=== PATIENT | female | born 1980 | race Caucasian/White ===

== ENCOUNTER 2019-08-01 15:45 | Outpatient (CLI) | payer BC, SELFPAY ==
--- NOTE | ~2019-08-01 | XR_ITS ---
EXAMINATION: XR chest 2V EXAM DATE: 08/01/2019 16:09 INDICATION: Cough, intermittent fever, symptoms 3 weeks. TECHNIQUE: Frontal and lateral projections of the chest obtained and reviewed. Comparison is made to prior examination from 07/04/2017. FINDINGS: The lungs are clear. There are no pleural effusions. The cardiomediastinal silhouette is within normal limits. There is no pneumothorax suspected. The bones and soft tissues are unremarkab le. IMPRESSION: Unremarkable chest x-ray exam. Reviewed, dictated and finalized at location A.
== END 2019-08-01 15:46 | disposition home or self-care (01) ==
PROVIDERS: PCP Family Medicine; Visit Provider Family Medicine
DX: R05 Cough (principal)
CPT/HCPCS: 71046

== ENCOUNTER 2019-12-13 07:28 | Emergency (ER) | payer BC, SELFPAY ==
--- NOTE | ~2019-12-13 | XR_ITS ---
EXAMINATION: XR chest 2V DATE: 12/13/2019 08:14 INDICATION: Mid to left-sided chest pain. TECHNIQUE: Frontal and lateral views of the chest were obtained. COMPARISON: Chest 2 views 08/01/2019 FINDINGS: The chest demonstrates clear lungs without pneumonia, pleural effusion, or pneumothorax. Th e heart size is normal. IMPRESSION: 1. No acute cardiopulmonary disease. Reviewed, dictated and finalized at location A.
--- NOTE | 2019-12-13 07:30 | PC.NURSE ---
VERBAL ORDER FROM MARLENY MORALEZ AFTER HIS DISCUSSION WITH PT TO ALSO ADMINISTER 5MG HALDOL AND 50MG BENADRYL IM WITH THE [facility].
[2019-12-13 07:33] VITALS: BP 149/100; PULSE 99; RESP 18; TEMP 36.7; O2SAT 100
[2019-12-13 07:50] VITALS: PULSE 86
--- NOTE | 2019-12-13 08:09 | ED.CHESTPAIN ---
HPI - Chest Pain General Chief Complaint: Chest Pain Stated Complaint: CHEST PAIN Time Seen by Provider: 12/13/19 07:32 History of Present Illness HPI narrative: Patient is a 39-year-old female who presents to the ER with chest pain. Left-sided radiating to left shoulder. Sharp and intermittent. Began at 3 AM in the morning and persisted and she got up later to get ready for work. Mild discomfort when taking a deep breath. No exertional component. Denies fever/chills/sweats/cough. She does have a Mirena IUD. No recent surgeries or long distance travel. She is without lower extremity swelling or bloody sputum. Has not taking any medication to help with the discomfort. She does report she had a slip and fall 2 days ago where she fell backwards and landed hard. She did not have any pain yesterday. Related Data Home Medications Medication Instructions Recorded Confirmed topiramate 50 mg tablet 50 mg PO BID 09/13/19 Allergies Allergy/AdvReac Type Severity Reaction Status Date / Time erythromycin base Allergy Unknown Vomiting Verified 12/13/19 08:57 Review of Systems Review of Systems: All systems reviewed & are unremarkable except as noted in HPI and below Constitutional: Constitutional: Denies chills and Denies fever(s) Cardiovascular: Cardiovascular: Reports chest pain, Denies rapid heart rate and Reports radiating jaw, neck or arm pain Respiratory: Respiratory: Denies cough and Denies dyspnea Musculoskeletal: Musculoskeletal: Denies myalgias, Denies joint swelling and Denies muscle cramps PMFSH Past Medical History Medical History (Updated 12/13/19 @ 12:33 by Franck Manuel MD) Migraine Surgical History Surgical History (Updated 09/13/19 @ 07:58 by Joy Duong CMA) History of tonsillectomy Social History Social History (Updated 09/13/19 @ 07:59 by Joy Duong CMA) Smoking status: Former smoker Tobacco type: cigarettes Alcohol intake: current Substance use: never Exam Narrative: Exam Narrative: GENERAL: Well-appearing, well-nourished, and in no acute distress. HEAD: Normocephalic, atraumatic. CHEST: Clear to auscultation. No respiratory distress. No significant pain with palpation. HEART: Regular rate and rhythm. ormal peripheral pulses. ABDOMEN: Soft, nontender, nondistended. EXTREMITIES: Normal range of motion. No edema. SKIN: Warm, dry, no rash. NEURO: Alert and oriented x3. PSYCH: Normal mood and affect. Course Course Emergency Course: Troponin negative x2. Pain felt to be on results of patient's fall couple days prior. Recommend follow-up with PCP. Patient verbalized understanding. Vital Signs Vital signs: Vital Signs Temperature 98.0 F 12/13/19 07:33 Pulse Rate 99 12/13/19 07:33 Respiratory Rate 18 12/13/19 07:33 Blood Pressure 149/100 H 12/13/19 07:33 Pulse Oximetry 100 12/13/19 07:33 Temperature 97.8 F 12/13/19 11:23 Pulse Rate 75 12/13/19 11:23 Respiratory Rate 16 12/13/19 11:23 Blood Pressure 124/92 H 12/13/19 11:23 Pulse Oximetry 100 12/13/19 11:23 MDM - Chest Pain Lab Data Result diagrams: 12/13/19 08:07 12/13/19 08:07 Labs: Lab Results 12/13/19 12/13/19 12/13/19 Range/Units 08:07 08:07 08:07 WBC 6.7 (4.5-10.0) K/mm3 RBC 4.73 (4.2-5.4) M/mm3 Hgb 14.5 (12.0-15.0) g/dL Hct 42.8 (37.0-47.0) % MCV 90.5 (80-100) fl MCH 30.7 (26-34) pg MCHC 33.9 (32-36) g/dl RDW 12.5 (11.5-14.5) % Plt Count 316 (150-375) k/mm3 MPV 10.2 (7.4-10.4) fl Immature Gran % (Auto) 0.3 (0-0.5) % Neut % (Auto) 63.8 (45.5-73.1) % Lymph % (Auto) 26.8 (18.3-44.2) % Ector % (Auto) 7.0 (2.6-8.5) % Eos % (Auto) 1.2 (0-4.4) % Baso % (Auto) 0.9 (0.2-1.2) % Lymph # (Auto) 1.79 (0.9-3.2) K/mm3 Ector # (Auto) 0.5 (0.1-0.6) K/mm3 Eos # (Auto) 0.1 (0-0.3) K/mm3 Baso # (Auto) 0.1 (0.0-0.1) K/mm3 Abs Imm
[2019-12-13 08:14] LABS: Basophils Absolute Auto 0.1 K/mm3 (0.0-0.1); Basophils Percent Auto 0.9 % (0.2-1.2); Eosinophils Absolute Auto 0.1 K/mm3 (0-0.3); Eosinophils Percent Auto 1.2 % (0-4.4); Hematocrit 42.8 % (37.0-47.0); Hemoglobin 14.5 g/dL (12.0-15.0); Immature Granulocyte Absolute 0.02 K/mm3 (0.00-0.031); Immature Granulocyte Percent A 0.3 % (0-0.5); Lymphocytes Absolute Auto 1.79 K/mm3 (0.9-3.2); Lymphocytes Percent Auto 26.8 % (18.3-44.2); Mean Corpuscular HGB Conc 33.9 g/dl (32-36); Mean Corpuscular Hemoglobin 30.7 pg (26-34); Mean Corpuscular Volume 90.5 fl (80-100); Mean Platelet Volume 10.2 fl (7.4-10.4); Monocytes Absolute Auto 0.5 K/mm3 (0.1-0.6); Neutrophils Absolute Auto 4.3 K/mm3 (1.3-6.7); Neutrophils Percent Auto 63.8 % (45.5-73.1); Platelet Count Result 316 k/mm3 (150-375); Red Blood Count 4.73 M/mm3 (4.2-5.4); Red Cell Distribution Width 12.5 % (11.5-14.5); White Blood Count 6.7 K/mm3 (4.5-10.0)
[2019-12-13 08:24] LABS: INR 0.9; Prothrombin Time 12.1 Seconds (11.1-14.7)
[2019-12-13 08:26] LABS: Alanine Aminotransferase 15 U/L (4-35); Albumin Level 4.3 g/dL (3.5-5.1); Alkaline Phosphatase 69 U/L (38-126); Anion Gap 7 mmol/L (8-16); Aspartate Amino Transferase 19 U/L (14-36); Bilirubin,Total 0.4 mg/dL (0.2-1.3); Blood Urea Nitrogen 13 mg/dL (7-17); Calcium 8.9 mg/dL (8.4-10.2); Carbon Dioxide 20 mmol/L (22-30); Chloride 111 mmol/L (98-107); Estimated CRCL calculation 83 ml/min; Estimated Glomerular Filt Rate > 60; Glucose 99 mg/dL (65-105); Potassium 3.7 mmol/L (3.4-5.0); Sodium 138 mmol/L (137-145)
[2019-12-13 08:27] LABS: D Dimer 0.33 ug/mL (<0.48)
[2019-12-13 08:37] LABS: Troponin I < 0.012 ng/mL (0.000-0.034)
[2019-12-13] MEDS: KETOROLAC 30 MG/ML VIAL (*BKC) IV PUSH (08:49)
--- NOTE | 2019-12-13 09:02 | PC.NURSE ---
all results back. pt resting quietly on stretcher. no distress noted.
[2019-12-13 11:23] VITALS: BP 124/92; PULSE 75; RESP 16; TEMP 36.6; O2SAT 100
[2019-12-13 11:55] LABS: Troponin I < 0.012 ng/mL (0.000-0.034)
[2019-12-13 12:48] VITALS: BP 132/83; PULSE 80; RESP 22; O2SAT 99
== END 2019-12-13 12:50 | disposition home or self-care (01) ==
PROVIDERS: Emergency Provider Emergency Medicine; PCP Family Medicine
DX: R07.89 Other chest pain (principal); Z87.891 Personal history of nicotine dependence
CPT/HCPCS: 36415; 71046; 80053; 84484; 85025; 85380; 85610; 85730; 96374; 99284; J1885

== ENCOUNTER → 2020-03-21 15:23 | Outpatient (CLI) | payer BC, SELFPAY ==
--- NOTE | ~2020-03-21 | MM_ITS ---
EXAMINATION: MM screening [facility] BI w aisha HISTORY: Screening mammogram TECHNIQUE: Craniocaudal and mediolateral oblique 3-D tomosynthesis images were obtained and synthetic 2-D images were generated. CAD analysis was submitted and interpreted. COMPARISON: 11/02/2018 BREAST PARENCHYMAL COMPOSITION: There are scattered areas of fibroglandular density. FINDINGS: There is no evidence of suspicious mass, calcification, or architectural distortion to sugg est malignancy in either breast. There has been no suspicious interval change. IMPRESSION: 1. No mammographic evidence of malignancy. 2. Recommend routine screening mammography in one year. BI-RADS Category 1: Negative Reviewed, dictated and finalized at location A. APEUTIC RECREATION LEADER
== END ==
PROVIDERS: Visit Provider Obstetrics & Gynecology
DX: Z12.31 Encounter for screening mammogram for malignant neoplasm of breast (principal)
CPT/HCPCS: 77063; 77067

== ENCOUNTER → 2020-04-26 09:28 | Outpatient (CLI) | payer BC, SELFPAY ==
--- NOTE | ~2020-04-26 | XR_ITS ---
XR chest 2V DATE: 04/26/2020 10:01 INDICATION: Cough TECHNIQUE: 2 views COMPARISON: 12/13/2019 2 view chest FINDINGS: Normal heart size. No hilar or mediastinal enlargement. No pulmonary infiltrate or consolid ation, pleural effusion or pulmonary vascular congestion or pneumothorax. Included skeletal structure s are unremarkable. IMPRESSION: Negative Reviewed, dictated and finalized at location A. UNITY AIDE IMPRESSION: Negative
== END ==
PROVIDERS: PCP Nurse Practitioner Family; Visit Provider Nurse Practitioner Family
DX: R05 Cough (principal)
CPT/HCPCS: 71046

== ENCOUNTER → 2021-05-27 07:12 | Outpatient (CLI) | payer BC, SELFPAY ==
--- NOTE | ~2021-05-27 | MM_ITS ---
EXAMINATION: MM screening [facility] BI w aisha HISTORY: Screening TECHNIQUE: Craniocaudal and mediolateral oblique 3-D tomosynthesis images were obtained and synthetic 2-D images were generated. CAD analysis was submitted and interpreted. COMPARISON: Comparison to multiple prior studies sequentially, with oldest reviewed study dated 11/02. BREAST PARENCHYMAL COMPOSITION: There are scattered areas of fibroglandular density. FINDINGS: There is no evidence of suspicious mass, calcification, or architectural distortion to sugg est malignancy in either breast. There has been no suspicious interval change. IMPRESSION: 1. No mammographic evidence of malignancy. 2. Recommend routine screening mammography in one year. BI-RADS Category 1: Negative Reviewed, dictated and finalized at location A. E CALLER
== END ==
PROVIDERS: PCP Nurse Practitioner Family; Visit Provider Obstetrics & Gynecology
DX: Z12.31 Encounter for screening mammogram for malignant neoplasm of breast (principal)
CPT/HCPCS: 77063; 77067

== ENCOUNTER → 2022-08-12 16:51 | Outpatient (CLI) | payer BC, SELFPAY ==
--- NOTE | ~2022-08-12 | MM_ITS ---
EXAMINATION: MM screening [facility] BI w aisha HISTORY: Screening mammogram TECHNIQUE: Craniocaudal and mediolateral oblique 3-D tomosynthesis images were obtained and synthetic 2-D images were generated. CAD analysis was submitted and interpreted. COMPARISON: 05/27/2021, 03/21/2020, 11/02/2018 BREAST PARENCHYMAL COMPOSITION: There are scattered areas of fibroglandular density. FINDINGS: No suspicious mass, calcification, or architectural distortion are identified in either lonnie ast to suggest malignancy. There has been no suspicious interval change. IMPRESSION: 1. No mammographic evidence of malignancy. 2. Recommend routine screening mammography in one year. BI-RADS Category 1: Negative Reviewed, dictated and finalized at location A.
== END ==
PROVIDERS: PCP Nurse Practitioner Family; Visit Provider Obstetrics & Gynecology
DX: Z12.31 Encounter for screening mammogram for malignant neoplasm of breast (principal)
CPT/HCPCS: 77063; 77067

== ENCOUNTER 2023-01-09 18:09 | Emergency (ER) | payer BC, SELFPAY ==
--- NOTE | 2023-01-09 18:11 | ED.FEMALEGU ---
HPI - Female Genitourinary General Chief complaint: Urogenital-Female Stated complaint: Urinary Problems Time Seen by Provider: 01/09/23 18:11 Source: patient Mode of arrival: ambulatory Limitations: no limitations History of Present Illness HPI Narrative: Breanna is a 42-year-old female patient presenting to the clinic today with complaints of urinary issues. She reports over the last 2-3 days she has had urinary frequency, urgency and feels as though she has had some urinary retention. Does have some pressure in the lower abdomen. Pressure in the abdomen has worsened today. Denies any known blood in her urine. Denies any fever, chills, or back pain. No nausea or vomiting Related Data Home Medications Medication Instructions Recorded Confirmed topiramate 50 mg tablet (Topamax) 50 mg PO BID 09/13/19 01/09/23 levonorgestrel 21 mcg/24 hours (8 1 device intrauterine ONCE 08/10/20 01/09/23 yrs) 52 mg intrauterine device (Mirena) Allergies Allergy/AdvReac Type Severity Reaction Status Date / Time erythromycin base AdvReac Intermediate Nausea and Verified 01/09/23 18:14 Vomiting Review of Systems Review of Systems: Pertinent positives per HPI. Patient denies any fever, chills, rash, headache, visual changes, dizziness, cough, shortness of breath, chest pain, palpitations, nausea, vomiting, diarrhea, constipation, abdominal pain, or any urinary issues. [facility] Past Medical History Medical History Elective x1 04/1998 Migraine Vaginal delivery x1 08/09/02, full, vag, male, 7#13 Surgical History Surgical History History of tonsillectomy 2010 [place] teeth extracted 08/1996 Family History Family History Father Diabetes mellitus Mother Thyroid disorder Grandparent Diabetes mellitus Other Colon cancer Hypertension Social History Social History Smoking status: Former smoker Tobacco type: cigarettes Alcohol intake: current Alcohol use details: socially Substance use: never Living arrangements: with family Occupation/Education: occupation Additional occupation/education comments: [employer] Gender identity (if verbalized by the patient): Male Sexual Orientation (if Verbalized by the Patient): Straight or Heterosexual Agree to blood products: Yes Comments At the time of my signature, I reviewed and agree with the nursing past medical, surgical, social, and family history. There is no relevant family history pertinent to the patient complaint. Exam Narrative: General: Well-developed, obese, in no apparent distress. Head: Normocephalic, atraumatic. Cardio: Regular rate and rhythm, s1 and s2 normal, no murmur appreciated. Resp: Clear to auscultation bilaterally, no rhonchi, rales, wheezing or rubs. Abdomen: Soft, pliable, bowel sounds present in all quadrants, non-tender to palpation, no organomegly, no CVAT tenderness. Course Course Emergency Course: Portions of this record may have been created with voice recognition software. Level of Care: Express Care Visit Vital Signs Vital signs: Vital signs reviewed MDM - Female Genitourinary MDM Narrative Medical decision making narrative: At the time of visit patient is resting comfortably on the exam table. UA shows 1+ leukocytes and trace of protein. We will send for culture. I suspect patient has acute cystitis. Supportive measures were discussed with the patient she voiced understanding discharge instructions and agrees to treatment plan. Will place the patient on Bactrim. Differential Diagnosis Differential diagnosis: Likely urinary tract infection and cystitis Discharge Plan Discharge Clinical Impression: UTI (urinary tract infection) Qualifiers:
[2023-01-09 18:19] VITALS: BP 137/96; PULSE 85; RESP 16; TEMP 36.5; O2SAT 99
== END 2023-01-09 18:30 | disposition home or self-care (01) ==
PROVIDERS: Emergency Provider Nurse Practitioner Family; PCP Nurse Practitioner Family
DX: N30.00 Acute cystitis without hematuria (principal); Z87.891 Personal history of nicotine dependence
CPT/HCPCS: 81003; 87086; 87088; 99213; G0463

== ENCOUNTER 2023-01-25 08:47 | Emergency (ER) | payer BC, SELFPAY ==
--- NOTE | ~2023-01-25 | XR_ITS ---
EXAMINATION: XR ankle RT min 3V INDICATION: Right ankle pain TECHNIQUE: Four views of the right ankle are obtained. COMPARISON: None available FINDINGS: No fracture, dislocation, or subluxation. The bones, soft tissues, and joint spaces are unr emarkable. A plantar calcaneal enthesophyte is noted. IMPRESSION: 1. No acute osseous abnormality. Reviewed, dictated and finalized at location F. INAL OPERATOR
[2023-01-25 08:58] VITALS: BP 133/95; PULSE 85; RESP 18; TEMP 36.6; O2SAT 100
--- NOTE | 2023-01-25 09:01 | ED.LOWEXIN ---
HPI - Extremity Injury (Lower) General Chief Complaint: Extremity Injury, Lower Stated Complaint: Rt Ankle Pain Time Seen by Provider: 01/25/23 09:01 Source: patient Mode of arrival: ambulatory Limitations: no limitations History of Present Illness HPI Narrative: Patient is a 42-year-old female that presents with right ankle pain after rolling it yesterday. Patient reports it hurts if moving in certain direction. Patient still able to walk. Patient has been taking Tylenol ibuprofen. Denies any significant swelling or bruising. Related Data Home Medications Medication Instructions Recorded Confirmed topiramate 50 mg tablet (Topamax) 50 mg PO BID 09/13/19 01/25/23 levonorgestrel 21 mcg/24 hours (8 1 device intrauterine ONCE 08/10/20 01/25/23 yrs) 52 mg intrauterine device (Mirena) Allergies Allergy/AdvReac Type Severity Reaction Status Date / Time erythromycin base AdvReac Intermediate Nausea and Verified 01/25/23 09:06 Vomiting Review of Systems Review of Systems: All systems reviewed & are unremarkable except as noted in HPI and below Constitutional: Constitutional: Denies body ache(s), Denies chills, Denies fatigue, Denies fever(s), Denies headache(s), Denies malaise and Denies weakness Eyes: Eyes: Denies blurry vision, Denies irritation and Denies loss of vision ENT: Denies otalgia, Denies headache(s), Denies nasal discharge, Denies sinus pain and Denies sore throat Cardiovascular: Cardiovascular: Denies chest pain, Denies irregular heart rhythm and Denies dyspnea Respiratory: Respiratory: Denies dyspnea Gastrointestinal: Gastrointestinal: Denies abdominal pain, Denies melena, Denies hematochezia, Denies diarrhea, Denies nausea and Denies vomiting Musculoskeletal: Musculoskeletal: Denies back pain, Denies myalgias and Reports arthralgias Integumentary/Breasts: Skin/Breast: Denies pruritus and Denies rash Neurologic: Denies headache(s), Denies loss of vision and Denies weakness Psychiatric: Psychiatric: Reports no additional psychiatric complaints Endocrine: Endocrine: Denies fatigue PMFSH Past Medical History Medical History Elective x1 04/1998 Migraine Vaginal delivery x1 08/09/02, full, vag, male, 7#13 Surgical History Surgical History History of tonsillectomy 2010 [place] teeth extracted 08/1996 Family History Family History Father Diabetes mellitus Mother Thyroid disorder Grandparent Diabetes mellitus Other Colon cancer Hypertension Social History Social History Smoking status: Former smoker Tobacco type: cigarettes Alcohol intake: current Alcohol use details: socially Substance use: never Living arrangements: with family Occupation/Education: occupation Additional occupation/education comments: [employer] Gender identity (if verbalized by the patient): Male Sexual Orientation (if Verbalized by the Patient): Straight or Heterosexual Agree to blood products: Yes Comments At time of signature, agree with nursing past medical, surgical, social and family history. There is no relevant family history pertinent to the presenting complaint. Exam Const: General: cooperative, healthy appearing, comfortable, no acute distress and well nourished Nutritional Appearance: well nourished Orientation/consciousness: patient oriented x3 Limitations: no limitations HENMT: Head: normal to inspection, normocephalic and atraumatic Ears: hearing grossly normal bilaterally and external ears normal Face/Nose/Sinus: Normal external nose present, normal facial exam and face symmetric Face and sinus: normal facial exam and face symmetric Mouth: Yes lip normal Eyes: General: appearance normal, both eyes and all related
== END 2023-01-25 09:57 | disposition home or self-care (01) ==
PROVIDERS: Emergency Provider Nurse Practitioner Family; PCP Nurse Practitioner Family
DX: S93.401A Sprain of unspecified ligament of right ankle, initial encounter (principal); S96.911A Strain of unspecified muscle and tendon at ankle and foot level, right foot, initial encounter; X50.9XXA Other and unspecified overexertion or strenuous movements or postures, initial encounter; Z87.891 Personal history of nicotine dependence
CPT/HCPCS: 73610; 99213; G0463

== ENCOUNTER 2023-08-18 07:15 | Outpatient (CLI) | payer BC, SELFPAY ==
--- NOTE | ~2023-08-18 | MM_ITS ---
EXAMINATION: MM screening [facility] BI w aisha HISTORY: Screening TECHNIQUE: Craniocaudal and mediolateral oblique 3-D tomosynthesis images were obtained and synthetic 2-D images were generated. CAD analysis was submitted and interpreted. COMPARISON: Comparison to multiple prior studies sequentially, with oldest reviewed study dated 11/02. BREAST PARENCHYMAL COMPOSITION: There are scattered areas of fibroglandular density. FINDINGS: There is no evidence of suspicious mass, calcification, or architectural distortion to sugg est malignancy in either breast. There has been no suspicious interval change. IMPRESSION: 1. No mammographic evidence of malignancy. 2. Recommend routine screening mammography in one year. BI-RADS Category 1: Negative Reviewed, dictated and finalized at location B.
== END 2023-08-18 07:16 ==
PROVIDERS: PCP Family Medicine; Visit Provider Obstetrics & Gynecology
DX: Z12.31 Encounter for screening mammogram for malignant neoplasm of breast (principal)
CPT/HCPCS: 77063; 77067

== ENCOUNTER 2023-09-28 17:33 | Emergency (ER) | payer BC, SELFPAY ==
[2023-09-28 17:40] VITALS: BP 141/95; PULSE 77; RESP 20; TEMP 36.5; O2SAT 99
--- NOTE | 2023-09-28 17:52 | ED.URI ---
HPI - URI/Sore Throat General Chief Complaint: Upper Respiratory Infection Stated Complaint: poss sinus infection Time Seen by Provider: 09/28/23 17:42 Source: patient and RN notes reviewed Mode of arrival: ambulatory Limitations: no limitations History of Present Illness HPI Narrative: Patient presents today with 5 day history of sore throat, nasal congestion, sinus pressure, headache. Headache is worse today. States her nasal secretions have been clear up until today when they switched over to an opaque green color. Patient has been taking Zyrtec, Flonase, Aleve or ibuprofen, and cough drops along with occasional Sudafed. Related Data Home Medications Medication Instructions Recorded Confirmed topiramate 50 mg tablet (Topamax) 50 mg PO BID 09/13/19 09/28/23 levonorgestrel 21 mcg/24 hr (up to 1 device intrauterine ONCE 08/10/20 09/28/23 8 years) 52 mg intrauterine device (Mirena) Allergies Allergy/AdvReac Type Severity Reaction Status Date / Time erythromycin base AdvReac Intermediate Nausea and Verified 09/28/23 17:34 Vomiting Penicillins AdvReac Intermediate Nausea and Verified 09/28/23 17:43 Vomiting Review of Systems Review of Systems: CONSTITUTIONAL: Denies body aches, fever, chills, or sweats. EYES: Denies visual changes, redness, or discharge. ENT: Denies rhinorrhea, or otalgia.+ congestion, sore throat, sinus pressure CARDIOVASCULAR: Denies chest pain, palpitations, or edema. RESPIRATORY: Denies cough or dyspnea. GASTROINTESTINAL: Denies abdominal pain, nausea, vomiting, or diarrhea. GENITOURINARY: Denies dysuria or hematuria. SKIN: Denies rash, itching, or wounds. MUSCULOSKELETAL: Denies back pain, joint pain, or myalgia. NEUROLOGIC: Denies numbness, tingling, or weakness.+ headache PSYCH: Denies depression or anxiety. [facility] Past Medical History Medical History Elective x1 04/1998 Encounter for IUD insertion 2019 Migraine Vaginal delivery x1 08/09/02, full, vag, male, 7#13 Surgical History Surgical History History of tonsillectomy 2010 [place] teeth extracted 08/1996 Family History Family History Father Diabetes mellitus Mother Thyroid disorder Grandparent Diabetes mellitus Other Colon cancer Hypertension Social History Social History Smoking status: Former smoker Tobacco type: cigarettes Alcohol intake: current Alcohol use details: socially Substance use: never Substance use type: does not use Do You Feel Safe in your Home?: Yes Lack of Transportation: No Lack of Food: Never True Current Housing: I Have Housing Concerned About Future Housing: No Difficulty Paying Gas/Electric Bills: No Difficulty Paying for Meds: No Currently Unemployed: No Education: Trade/Vocational Certificate Difficulty w/ Childcare or Family Care: No Living arrangements: with family Occupation/Education: occupation Additional occupation/education comments: [employer] Gender identity (if verbalized by the patient): Female Sexual Orientation (if Verbalized by the Patient): Straight or Heterosexual Agree to blood products: Yes Comments At time of signature, I have reviewed and agree with nursing past medical, surgical, social and family history unless otherwise noted. Please see nursing chart for further information. There is no relevant family history pertinent to the presenting complaint Exam Narrative: GENERAL: Mildly ill-appearing, well-nourished, and in no acute distress. HEAD: Normocephalic, atraumatic. EYES: EOMI. No redness or drainage. Conjunctivae normal. ENT: Mucous membranes pink and moist. Nares congested. Right nasal turbinate is erythematous and edematous
== END 2023-09-28 17:58 | disposition home or self-care (01) ==
PROVIDERS: Emergency Provider Nurse Practitioner; PCP Internal Medicine
DX: J01.00 Acute maxillary sinusitis, unspecified (principal); Z87.891 Personal history of nicotine dependence
CPT/HCPCS: 99213; G0463

== ENCOUNTER 2024-03-17 07:47 | Outpatient (CLI) | payer BC, SELFPAY ==
--- NOTE | ~2024-03-17 | US_ITS ---
EXAMINATION: US thyroid DATE: 03/17/2024 08:21 INDICATION: Goiter. Neck pressure. Chronic cough. TECHNIQUE: Multiple ultrasound images of the thyroid were obtained. COMPARISON: None. FINDINGS: The right thyroid lobe measures 5.1 x 1.9 x 1.9 cm. The left thyroid lobe measures 4.8 x 1.2 x 1.9 c m. The thyroid demonstrates heterogeneous hypoechogenicity. Vascularity is normal. In the left thyro id lobe, there is a 7 mm solid, very hypoechoic, wider than tall nodule with smooth margin without ec hogenic foci (TI-RADS TR4). IMPRESSION: 1. 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 2. Small thyroid nodule, likely not clinically significant. No follow-up is needed. Reviewed, dictated and finalized at location A. ING SCREENER IMPRESSION: 1. 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 2. Small thyroid nodule, likely not clinically significant. No follow-up is nee ded.
== END 2024-03-17 07:48 | disposition home or self-care (01) ==
LOC: MICIMG 07:47
DX: R05.3 Chronic cough (principal); E04.1 Nontoxic single thyroid nodule
CPT/HCPCS: 76536

== ENCOUNTER 2024-04-13 01:22 | Day surgery (SDC) | payer BC, SELFPAY ==
[2024-03-30 10:10] VITALS: BMI 36.1
[2024-04-13 06:50] VITALS: BP 142/97; PULSE 89; RESP 18; TEMP 36.3; O2SAT 99
--- NOTE | 2024-04-13 06:55 | P.PNAN_ITS ---
Anes - Initial Pre Proc Eval Procedure: Operation Date: 04/13/24 08:00 Proposed Procedures p Screening Colonoscopy - Moy Alexis MD Date/Time: 04/13/24 06:55 Surgeon: Moy Alexis MD Pre Op Diagnosis: neoplasm screening Patient Data Age: 43 Gender: F Height: 1.52 m Weight: 84 kg Allergies Allergy/AdvReac Type Severity Reaction Status Date / Time erythromycin base AdvReac Intermediate Nausea and Verified 04/13/24 06:48 Vomiting Penicillins AdvReac Intermediate Nausea and Verified 04/13/24 06:48 Vomiting Home Medications ?Medication ?Instructions ?Recorded ?Confirmed ?Type topiramate 50 mg tablet (Topamax) 50 mg PO BID 09/13/19 03/30/24 History levonorgestrel (Mirena) 1 device intrauterine ONCE 08/10/20 03/30/24 History cetirizine 10 mg tablet (Zyrtec) 10 mg PO Q12H 09/28/23 03/30/24 History ergocalciferol (vitamin D2) 1,250 50,000 unit PO WEEKLY 03/02/24 03/30/24 History mcg (50,000 unit) capsule levothyroxine 25 mcg tablet 25 mcg PO ONCE 03/30/24 03/30/24 History Patient hx anesthesia problems: none Family hx anesthesia problems: none Results Review: All pre-operative results and documents have been reviewed as part of the pre- operative evaluation. [facility] Past Medical History Medical History Encounter for IUD insertion 2019 Vaginal delivery x1 08/09/02, full, vag, male, 7#13 Elective x1 04/1998 Migraine Surgical History Surgical History [place] teeth extracted 08/1996 History of tonsillectomy 2009 Family History Family History Father Diabetes mellitus Mother Thyroid disorder Grandparent Diabetes mellitus Other Colon cancer Hypertension Social History Social History Smoking status: Former smoker Tobacco type: cigarettes Alcohol intake: current Alcohol use details: socially Substance use: never Substance use type: does not use Do You Feel Safe in your Home?: Yes Lack of Transportation: No Lack of Food: Never True Current Housing: I Have Housing Concerned About Future Housing: No Difficulty Paying Gas/Electric Bills: No Difficulty Paying for Meds: No Currently Unemployed: No Education: Trade/Vocational Certificate Difficulty w/ Childcare or Family Care: No Living arrangements: alone Occupation/Education: occupation Additional occupation/education comments: [employer] Gender identity (if verbalized by the patient): Female Sexual Orientation (if Verbalized by the Patient): Straight or Heterosexual Spiritual care concerns: No Agree to blood products: Yes Anes - Eval Final PreProcedure Day of Procedure 04/13/24 06:55 Patient weight: obese Heart: regular rate and rhythm Lungs: clear to auscultation Airway: Mallampati scale class II Neurological: alert and oriented Last oral intake: >/= 8 hours ASA classification: II Emergent: no Anesthetic plan: proceed Anesthesia type and monitoring: general GIVS and standard monitoring Results Review: All pre-operative results and documents have been reviewed as part of the pre- operative evaluation. Informed Consent: The patient's anesthetic plan and its attendant risks and benefits were discussed with the patient/family/POA. Questions were solicited and answers provided to the satisfaction of the patient/family/POA.
[2024-04-13 07:00] LABS: BEDSIDEPREGUCG Negative (Negative)
[2024-04-13] MEDS: LACTATED RINGERS 1,000 ML 150 ML IV CONT (07:06)
--- NOTE | 2024-04-13 07:42 | P.HP_ITS ---
History of Present Illness History of Present Illness Consent: Risks, benefits, and alternatives have been discussed and questions answered. Patient agrees to proceed with procedure. Chief complaint: neoplasm screening Narrative: Breanna Camejo is a 43 year old female here for first screening colonoscopy Review of Systems Review of Systems: All systems reviewed & are unremarkable except as noted in HPI and below PMFSH Past Medical History Medical History (Updated 04/13/24 @ 07:42 by Moy Alexis MD) Colon cancer screening Encounter for IUD insertion 2019 Vaginal delivery x1 08/09/02, full, vag, male, 7#13 Elective x1 04/1998 Migraine Surgical History Surgical History [place] teeth extracted 08/1996 History of tonsillectomy 2009 Family History Family History Father Diabetes mellitus Mother Thyroid disorder Grandparent Diabetes mellitus Other Colon cancer Hypertension Social History Social History Smoking status: Former smoker Tobacco type: cigarettes Alcohol intake: current Alcohol use details: socially Substance use: never Substance use type: does not use Do You Feel Safe in your Home?: Yes Lack of Transportation: No Lack of Food: Never True Current Housing: I Have Housing Concerned About Future Housing: No Difficulty Paying Gas/Electric Bills: No Difficulty Paying for Meds: No Currently Unemployed: No Education: Trade/Vocational Certificate Difficulty w/ Childcare or Family Care: No Living arrangements: alone Occupation/Education: occupation Additional occupation/education comments: [employer] Gender identity (if verbalized by the patient): Female Sexual Orientation (if Verbalized by the Patient): Straight or Heterosexual Spiritual care concerns: No Agree to blood products: Yes Meds Home Medications and Allergies Home Medications ?Medication ?Instructions ?Recorded ?Confirmed ?Type topiramate 50 mg tablet (Topamax) 50 mg PO BID 09/13/19 04/13/24 History levonorgestrel (Mirena) 1 device intrauterine ONCE 08/10/20 04/13/24 History cetirizine 10 mg tablet (Zyrtec) 10 mg PO Q12H 09/28/23 04/13/24 History ergocalciferol (vitamin D2) 1,250 50,000 unit PO WEEKLY 12/11/24 01/22/25 History mcg (50,000 unit) capsule levothyroxine 25 mcg tablet 25 mcg PO ONCE 03/30/24 04/13/24 History Allergies Allergy/AdvReac Type Severity Reaction Status Date / Time erythromycin base AdvReac Intermediate Nausea and Verified 04/13/24 06:48 Vomiting Penicillins AdvReac Intermediate Nausea and Verified 04/13/24 06:48 Vomiting Vital Signs Vital Signs - 24 hr 04/13/24 06:50 Temperature 97.3 F L Pulse Rate 89 Respiratory Rate 18 Blood Pressure 142/97 H Pulse Oximetry 99 Oxygen Delivery Room Air Exam Const: General: comfortable and no acute distress HENMT: Face/Nose/Sinus: Normal nares present Eyes: General: appearance normal, both eyes and all related structures Neck: Neck: no JVD Resp: Auscultation: clear to auscultation bilaterally Cardio: Rate: regular rate Rhythm: regular rhythm GI: Inspection: non-distended GI Palp: Yes Soft to palpation Skin: General skin exam: normal color Neuro: General: gait normal Speech: normal speech Extrem: General: normal to inspection Psych: Mental Status: mental status grossly normal Assessment and Plan Assessment and plan (1) Colon cancer screening: Code(s): Z12.11 - Encounter for screening for malignant neoplasm of colon Status: Acute Assessment and Plan: colonoscopy
[2024-04-13 07:55] VITALS: BP 114/70; PULSE 85; RESP 20; O2SAT 95
[2024-04-13 08:05] VITALS: BP 103/67; PULSE 78; RESP 17; O2SAT 97
[2024-04-13 08:15] VITALS: BP 106/60; PULSE 73; RESP 20; O2SAT 99
--- OUTSIDE RECORDS SUMMARY | 2024-04-14 21:06 | XMS_ITS | Data Portability ---
Author Organization [facility] [employer], Main Office Address [address] [place] [address] Assessment No assessment recorded. Plan of Treatment Reminders Order Date Submit Date Provider Last Modified By Organization Details Last Modified Time Details Appointments None recorded. Lab vitamin D, 25-hydroxy, total, serum 2023 024 Merchant [employer] [facility], [address], [address], 4 08:05:14 CMP, serum or plasma 2023 024 dhenSvitStyle [facility], [address], [address], 4 08:05:14 CBC w/ auto diff 2023 024 [email or web address] [facility], [address], [address], 4 08:05:14 lipid panel, serum 2023 024 [employer]chant [employer] [facility], [address], [address], 4 08:05:14 HbA1c (hemoglobin A1c), blood 2023 024 [employer] [facility], [address], [address], 4 08:05:14 TSH, serum or plasma 2023 024 [email or web address] [facility], [address] [facility] [address], [place], [address], 4 08:05:14 Referral ultrasound technol referral 2022 023 [email or web address] 3 Heike Hall MD, [address], [place], [address], 3 08:38:[address] referral - Please call patient to schedule an appointment . Thank you. 2023 024 [email or web address] [facility], [address] [facility], [place], [address], 4 08:55:03 gastroenter ologist referral - Please call patient to schedule an appointment . Thank you. 2023 024 [email or web address] [facility], [address], [address], [place], [address], 4 09:57:06 Procedures None recorded. Surgeries None recorded. Imaging US, thyroid - Please call pt to schedule 2023 024 [email or web address] [address] [facility], [address], [address], [place], [address], 4 09:00:29 Medication Orders topiramate 50 mg tablet 2023 024 [id number], [address] [place], [place], [id number], 4 10:37:06 cetirizine 10 mg capsule 2023 024 [id number], [address] [facility], [place], [phone], 4 11:28:12 Medrol (Michael) 4 mg tablets in a dose pack 2023 024 [email or web address]61458, [address] [facility], [place], [place], [id number], 11:52:56 Patient TargetsNo targets recorded. Patient InstructionsNo instructions recorded. Reason for Referral Windows Architect Referral for Dry c ough Referring Physician: Anahi Mckeon, [facility], Encounter Date: 10/14/2022 Forensic Accountant Referral for Screening for malignant neoplasm of colon Please call patient to schedule an appointment. Thank you. Referring Physician: Marni Echeverria [facility], Encounter Date: 09/09/2023 Label Cutter Referral for E rythema of skin Please call patient to schedule an appointment. Thank you. Referring Physician: Marni Echeverria [facility], Encounter Date: 09/09/2023 Results Created Date Observation Date Name Description Value Unit Range Abnormal Flag Note LastModifiedBy Organization Detail LastModifiedTime 02/01/2002/02/2024 LIPID PANEL , STAND PEGGY cholesterol, total 169 mg/dL <200 normal Not Available [facility] [place] [address] [place], [address], 02/02/2024 06:00:26 02/01/2002/02/2024 LIPID PANEL , STAND PEGGY HDL cholesterol 52 mg/dL > or = 50 normal Not Available [facility] [address] [place], [address], 02/02/2024 06:00:26 02/01/2002/02/2024 LIPID PANEL , STAND PEGGY triglyceride s 61 mg/dL <150 normal Not Available [facility] [address] [place], [address], 02/02/2024 06:00:26 02/01/2002/02/2024 LIPID PANEL , STAND PEGGY LDL-choleste rol 102 mg/dL _(angélica c) high Refer ence range : <100 Cecilio able range <100 mg/dL for prima ry preve ntion ; <70 mg/dL for patie nts with CHD or diabe tic patie nts with > or = 2 CHD risk facto rs. LDL-C is now calcu lated using the [facility]Hop kins zeny edmond n, which is a valid ated novel metho d provi denise rosa r accur acy than the Fried marly equat ion in the estim ation of LDL-C . Luciana keith SS et al. COLTEN. 2013; 310(1 9): 2061- 2068 (http ://ed ucati on.Qu estDi Avvo. com/f aq/FA Q164) Not Available [facility] [place] [address] [address] [place], [address], 02/02/2024 06:00:26 02/01/20 24 02/02/2024 LIPID PANEL , STAND PEGGY chol/HDLC ratio 3.3 (calc ) <5.0 normal Not Available [address], [address], 02/02/2024 06:00:26 02/01/20 24 02/02/2024 LIPID PANEL , STAND PEGGY non HDL cholesterol 117 mg/dL _(angélica c) <130 normal For patie nts with diabe patricia plus 1 major ASCVD risk facto r, treat ing to a non-H DL-C goal of <100 mg/dL (LDL- C of <70 mg/dL ) is consi fausto a juan m espino optio n. Not Available [facility] [place] [address] [place], [address], 02/02/2024 06:00:26 02/01/20 24 02/02/2024 COMPR EHENS KINGSLEY METAB OLIC PANEL glucose 86 mg/dL 65-99 normal Fasti ng refer ence inter rob Not Available [facility] [place] [address] [place], [address], 02/02/2024 06:00:28 02/01/20 24 02/02/2024 COMPR EHENS KINGSLEY METAB OLIC PANEL urea nitrogen (BUN) 14 mg/dL 7-25 normal Not Available [address], [address], 02/02/2024 06:00:28 02/01/20 24 02/02/2024 COMPR EHENS KINGSLEY METAB OLIC PANEL creatinine 0.90 mg/dL 0.50-0 .99 normal Not Available [address], [address], 02/02/2024 06:00:28 02/01/20 24 02/02/2024 COMPR EHENS KINGSLEY METAB OLIC PANEL eGFR 80 mL/mi n/1.7 3m2 > or = 60 normal Not Available [address], [address], 02/02/2024 06:00:28 02/01/20 24 02/02/2024 COMPR EHENS KINGSLEY METAB OLIC PANEL BUN/creatini ne ratio SEE NOTE: (calc ) 6-22 Not Repor lydia: BUN and Creat inine are withi n refer ence range . Not Available [address], [address], 02/02/2024 06:00:28 02/01/20 24 02/02/2024 COMPR EHENS KINGSLEY METAB OLIC PANEL sodium 139 mmol/ L 135-14 6 normal Not Available [address], [address], 02/02/2024 06:00:28 02/01/20 24 02/02/2024 COMPR EHENS KINGSLEY METAB OLIC PANEL potassium 3.5 mmol/ L 3.5-5. 3 normal Not Available [address], [address], 02/02/2024 06:00:28 02/01/20 24 02/02/2024 COMPR EHENS KINGSLEY METAB OLIC PANEL chloride 108 mmol/ L 98-110 normal Not Available [address] [place], [address], 02/02/2024 06:00:28 02/01/20 24 02/02/2024 COMPR EHENS KINGSLEY METAB OLIC PANEL carbon dioxide 21 mmol/ L 20-32 normal Not Available [address], [address], 02/02/2024 06:00:28 02/01/20 24 02/02/2024 COMPR EHENS KINGSLEY METAB OLIC PANEL calcium 9.0 mg/dL 8.6-10 .2 normal Not Available [address], [address], 02/02/2024 06:00:28 02/01/20 24 02/02/2024 COMPR EHENS KINGSLEY METAB OLIC PANEL protein, total 7.0 g/dL 6.1-8. 1 normal Not Available [address], [address], 02/02/2024 06:00:28 02/01/20 24 02/02/2024 COMPR EHENS KINGSLEY METAB OLIC PANEL albumin 4.6 g/dL 3.6-5. 1 normal Not Available [address], [address], 02/02/2024 06:00:28 02/01/20 24 02/02/2024 COMPR EHENS KINGSLEY METAB OLIC PANEL globulin 2.4 g/dL_ (calc ) 1.9-3. 7 normal Not Available [address], [address], 02/02/2024 06:00:28 02/01/20 24 02/02/2024 COMPR EHENS KINGSLEY METAB OLIC PANEL albumin/glob ulin ratio 1.9 (calc ) 1.0-2. 5 normal Not Available [address], [address], 02/02/2024 06:00:28 02/01/20 24 02/02/2024 COMPR EHENS KINGSLEY METAB OLIC PANEL bilirubin, total 0.4 mg/dL 0.2-1. 2 normal Not Available [address], [address], 02/02/2024 06:00:28 02/01/20 24 02/02/2024 COMPR EHENS KINGSLEY METAB OLIC PANEL alkaline phosphatase 58 U/L 31-125 normal Not Available [facility] [employer] [address] [address] [place], [address], 02/02/2024 06:00:28 02/01/20 24 02/02/2024 COMPR EHENS KINGSLEY METAB OLIC PANEL AST 11 U/L 10-35 normal Not Available [address], [address], 02/02/2024 06:00:28 02/01/20 24 02/02/2024 COMPR EHENS KINGSLEY METAB OLIC PANEL ALT 11 U/L 6-29 normal Not Available [address], [address], 02/02/2024 06:00:28 02/01/20 24 02/02/2024 CBC (INCL UDES DIFF/ PLT) white blood cell count 13.1 thous and/u L 3.8-10 .8 high Not Available [employer] [address], [address], 02/02/2024 06:00:29 02/01/20 24 02/02/2024 CBC (INCL UDES DIFF/ PLT) red blood cell count 5.13 delores on/uL 3.80-5 .10 high Not Available [facility] [address], [address], 02/02/2024 06:00:29 02/01/20 24 02/02/2024 CBC (INCL UDES DIFF/ PLT) hemoglobin 15.5 g/dL 11.7-1 5.5 normal Not Available [address], [address], 02/02/2024 06:00:29 02/01/20 24 02/02/2024 CBC (INCL UDES DIFF/ PLT) hematocrit 48.5 % 35.0-4 5.0 high Not Available [address], [address], 02/02/2024 06:00:29 02/01/20 24 02/02/2024 CBC (INCL UDES DIFF/ PLT) MCV 94.5 fL 80.0-1 00.0 normal Not Available [address], [address], 02/02/2024 06:00:29 02/01/20 24 02/02/2024 CBC (INCL UDES DIFF/ PLT) MCH 30.2 pg 27.0-3 3.0 normal Not Available [address], [address], 02/02/2024 06:00:29 02/01/20 24 02/02/2024 CBC (INCL UDES DIFF/ PLT) MCHC 32.0 g/dL 32.0-3 6.0 normal For adult s, a sligh t decre ase in the calcu lated MCHC value (in the range of 30 to 32 g/dL) is most likel y not clini remy signi jimena t; jose er, it shoul d be inter prete d with cauti on in corre latio n with other red cell young eters and the patie nt's clini angélica condi tion. Not Available [address], [address], 02/02/2024 06:00:29 02/01/20 24 02/02/2024 CBC (INCL UDES DIFF/ PLT) RDW 12.6 % 11.0-1 5.0 normal Not Available [address], [address], 02/02/2024 06:00:29 02/01/20 24 02/02/2024 CBC (INCL UDES DIFF/ PLT) platelet count 390 thous and/u L 140-40 0 normal Not Available [address], [address], 02/02/2024 06:00:29 02/01/20 24 02/02/2024 CBC (INCL UDES DIFF/ PLT) MPV 11.0 fL 7.5-12 .5 normal Not Available [address], [address], 02/02/2024 06:00:29 02/01/20 24 02/02/2024 CBC (INCL UDES DIFF/ PLT) absolute neutrophils 9484 cells /uL 1500-7 800 high Not Available [address], [address], 02/02/2024 06:00:29 02/01/20 24 02/02/2024 CBC (INCL UDES DIFF/ PLT) absolute lymphocytes 2699 cells /uL 850-39 00 normal Not Available [address], [address], 02/02/2024 06:00:29 02/01/20 24 02/02/2024 CBC (INCL UDES DIFF/ PLT) absolute monocytes 838 cells /uL 200-95 0 normal Not Available [address], [address], 02/02/2024 06:00:29 02/01/20 24 02/02/2024 CBC (INCL UDES DIFF/ PLT) absolute eosinophils 13 cells /uL 15-500 low Not Available [address], [address], 02/02/2024 06:00:29 02/01/20 24 02/02/2024 CBC (INCL UDES DIFF/ PLT) absolute basophils 66 cells /uL 0-200 normal Not Available [address], [address], 02/02/2024 06:00:29 02/01/20 24 02/02/2024 CBC (INCL UDES DIFF/ PLT) neutrophils 72.4 % normal Not Available [address], [address], 02/02/2024 06:00:29 02/01/20 24 02/02/2024 CBC (INCL UDES DIFF/ PLT) lymphocytes 20.6 % normal Not Available [address], [address], 02/02/2024 06:00:29 02/01/20 24 02/02/2024 CBC (INCL UDES DIFF/ PLT) monocytes 6.4 % normal Not Available [address], [address], 02/02/2024 06:00:29 02/01/20 24 02/02/2024 CBC (INCL UDES DIFF/ PLT) eosinophils 0.1 % normal Not Available [address], [address], 02/02/2024 06:00:29 02/01/20 24 02/02/2024 CBC (INCL UDES DIFF/ PLT) basophils 0.5 % normal Not Available [address], [address], 02/02/2024 06:00:29 02/01/20 24 02/02/2024 TSH W/REF MOHAN TO FT4 TSH w/reflex to FT4 3.80 mIU/L normal Refer ence Range > or = 20 Years 0.40- 4.50 Pregn bereket Range s First trime ster 0.26- 2.66 Secon d trime ster 0.55- 2.73 Third trime ster 0.43- 2.91 Not Available [address] [place], [address], 02/02/2024 06:00:30 02/01/20 24 02/02/2024 VITAM IN D,25- OH,TO MONY,I A vitamin D,25-oh,tota l,ia 25 NG/mL 30-100 low Vitam in D Statu s 25-OH Vitam in D: Defic iency : <20 ng/mL Insuf ficie ncy: 20 - 29 ng/mL Optim al: > or = 30 ng/mL For 25-OH Vitam in D testi ng on patie nts on D2-wilkins pplem entat ion and patie nts for whom quant itati on of D2 and D3 fract ions is requi red, the Quest Assur eD(TM ) 25-OH VIT D, (D2,D 3), LC/MS /MS is recom chuck d: order code 07036 (syeda ents >2yrs ). See Note 1 Note 1 For addit ional infor cony monge refer to http: //[facility] Balderas stDia gnost ics.c om/fa q/FAQ 199 (This link is being provi ded for infor helen munoz/ rosa elena houston purpo ses only. ) Not Available [facility] [employer] [facility] [address] [place], [address], 02/02/2024 06:00:31 02/01/20 24 02/02/2024 HEMOG LOBIN A1C hemoglobin A1C 5.4 %_of_ total _HGB <5.7 normal For the purpo se of scree moreno for the prese nce of diabe patricia: <5.7% Consi stent with the absen ce of diabe patricia 5.7-6 .4% Consi stent with incre ased risk for diabe patricia (pred iabet es) > or =6.5% Consi stent with diabe patricia This assay resul t is consi stent with a decre ased risk of diabe patricia. Curre ntly, no conse nsus exist s tin walker use of hemog lobin A1c for diagn osis of diabe patricia in child corinne. Accor ding to Ameri can Diabe patricia Assoc iatio n (ADA) guide lines , hemog lobin A1c <7.0% repre sents optim al contr ol in non-p regna nt diabe tic patie nts. Arte abdifatah valera cs may apply to speci fic patie nt popul ation s. [facility] Medic al Care in Diabe patricia(A DA). Not Available [facility] [address] [address], [place], [address], 02/02/2024 06:00:32 08/14/19 23 08/12/2022 MAMMO , scree moreno, bilat eral No observ ation record ed. [email or web address] [facility] [address], [place], [address], 10/14/2022 08:54:08 01/26/20 23 01/25/2023 XR, ankle No observ ation record ed. [email or web address] [facility] [address], [place], [address], 01/27/2023 18:32:24 08/18/19 24 08/18/2023 MAMMO , scree moreno, bilat eral No observ ation record ed. [email or web address] [facility] [address], [place], [address], 08/18/2023 14:22:18 03/17/20 24 03/17/2024 US, thyro id No observ ation record ed. [email or web address] [facility] [address], [place], [address], 03/24/2024 11:31:00 Result Notes None recorded. 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 Not Available [facility] 3 22:22:33 Migraine 61591390 Active 2020 Not Available [facility] 3 22:22:33 Obesity 908633253 Active 2021 Not Available [facility] 3 22:22:33 Essential hypertens ion 76729563 Active 2020 Not Available [facility] 3 22:22:33 COVID-19 188761610 Active 2021 Not Available [facility] 3 22:22:33 Dry cough 73358494 Active 2022 Anahi Mckeon NP [address], [address], [place], [address] , [employer] 3 09:00:12 Seasonal allergic rhinitis 258030546 Active 2023 AMBER Wang [address], [address], [place], [address] , [employer] 4 10:24:43 Vitamin D deficienc y 68531543 Active 2023 AMBER Wang [address], [address], [place], [address] , [employer] 4 10:28:38 Erythema of skin 945179959 Active 2023 AMBER Wang [address], [address], [place], [address] , [employer] 4 10:37:48 Chronic cough 04851827 Active 2023 AMBER Wang [address], [address], [place], [address] , [employer] 4 11:51:03 Pain in right thumb 142687712390 9102 Active 2023 AMBER Wang [address], [address], [place], [address] , [employer] [facility] 12:05:35 Dixon thyroidit is 00786849 Active 2023 AMBER Wang [address], [address], [place], [address] , [employer] 19:09:11 Problem Notes None recorded. Procedures Surgical History Date Name Laterality Status Provider Name and Address Organization Details Recorded Time 01/29/20 24 Cerumen Removal completed AMBER Wang [address], [address], [place], [address], [employer] 01/29/2024 12:07:09 02/21/20 23 Date of Last Pap Smear completed Anahi Bailey RN [facility] [employer] 09/09/2023 10:14:55 05/22/19 23 Most Recent Mammogram completed Anahi Bailey RN [facility] DPSI [facility] 10/14/2022 08:53:16 Tonsillectomy completed Not Available [facility] 05/21/2022 22:22:12 Imaging Results Imaging Date Name Status LastModified by Organiz ation Details LastModified Time 08/12/2022 MAMMO, screening, bilateral completed [email or web address] [facility] [address], [place], [address], 10/14/2022 08:54:08 01/25/2023 XR, ankle completed [email or web address] [facility] [address] [facility] [address], [place], [address], 01/27/2023 18:32:24 08/18/2023 MAMMO, screening, bilateral completed [email or web address] [facility] [address], [place], [address], 08/18/2023 14:22:18 03/17/2024 US, thyroid completed [email or web address] [facility] [address], [place], [address], 03/24/2024 11:31:00 Procedure Notes None recorded. Medical Equipment None Reported. Allergies Allergen ID Allergen Name Allergen Category Reaction Reaction Severity Criticality Documentation Date Start Date Code Code System Note Provider Name and Address Organization Details Recorded Time 96769 Product containin g penicilli n and antibioti c (product) medicatio n Not available Not available Not available 05/21/2022 29834 05 SNOMED unkno wn react ion as a child . Chicho trivedi is PCN aller gic. Not Available [facility] 3 22:23:18 00369 erythromy david medicatio n vomiting moderate Not available 05/21/2022 4053 RxNorm Not Available [facility] 3 22:23:18 Medications Name Sig Start Date Stop Date Status Note LastModified by Organization Details LastModified Time cyclobenzap rine 10 mg tablet Take 1 tablet 3 times a day by oral route as needed. 10/14 completed Not Available Not Available Not Available doxycycline hyclate 100 mg capsule TAKE 1 CAPSULE BY MOUTH TWICE DAILY WITH A MEAL UNTIL GONE. REPEAT 2 TIMES DAILY FOR 5-7 DAYS NEEDED FOR FLARES active Not Available Not Available No t Available cefuroxime axetil 250 mg tablet TK 1 T PO BID TAT active Not Available Not Available No t Available cetirizine 10 mg tablet TAKE 1 TABLET BY MOUTH TWICE DAILY NEEDED active Not Available Not Available No t Available azithromyci n 250 mg tablet TK 2 TS PO ON DAY 1, THEN TK 1 T PO D FOR 4 DAYS 09/08 completed Not Available Not Available Not Available ibuprofen 800 mg tablet TK 1 T PO TID active Not Available Not Available No t Available sulfamethox azole 800 mg-trimetho prim 160 mg tablet TAKE 1 TABLET BY MOUTH EVERY 12 HOURS FOR 7 DAYS 09/08 completed Not Available Not Available Not Available levothyroxi ne 25 mcg tablet Take 1 tablet every day by oral route before meal(s) for 90 days. active Not Available Not Available No t Available benzonatate 100 mg capsule TK 1 TO 2 CS PO TID PRF COUGH active Not Available Not Available No t Available clotrimazol e-betametha sone 1 %-0.05 % topical cream APPLY TOPICALLY TO THE AFFECTED AREA TWICE DAILY FOR 2 WEEKS 09/08 completed Not Available Not Available Not Available polymyxin B sulfate 10,000 unit-trimet hoprim 1 mg/mL eye drops INSTILL 1 DROP IN BOTH EYES EVERY 6 HOURS FOR 5 TO 7 DAYS 10/14 completed Not Available Not Available Not Available diclofenac sodium 75 mg tablet,jose yed release TAKE 1 TABLET BY MOUTH TWICE DAILY 10/14 completed Not Available Not Available Not Available cephalexin 500 mg tablet TK 1 T PO TID active Not Available Not Available No t Available ergocalcife rol (vitamin D2) 1,250 mcg (50,000 unit) capsule TAKE 1 CAPSULE BY MOUTH EVERY WEEK FOR 34 DAYS DIRECTED active Not Available Not Available No t Available levofloxaci n 500 mg tablet TK 1 T PO QD active Not Available Not Available No t Available methylpredn isolone 4 mg tablets in a dose pack FOLLOW PACKAGE DIRECTION S active Not Available Not Available No t Available doxycycline hyclate 100 mg tablet TAKE 1 TABLET BY MOUTH TWICE DAILY FOR 7 DAYS 01/28 completed Not Available Not Available Not Available naproxen 500 mg tablet TAKE 1 TABLET BY MOUTH TWICE DAILY 10/14 completed Not Available Not Available Not Available topiramate 50 mg tablet TAKE 1 TABLET BY MOUTH TWICE DAILY active Not Available Not Available No t Available Zylet 0.3 %-0.5 % eye drops,suspe nsion SHAKE LIQUID AND INSTILL 1 DROP IN BOTH EYES FOUR TIMES DAILY FOR 7 DAYS 10/14 completed Not Available Not Available Not Available cetirizine 10 mg capsule Take 1 capsule twice a day by oral route as needed for 30 days. 01/28 completed Not Available Not Available Not Available ivermectin 1 % topical cream APPLY CREAM TOPICALLY TO THE AFFECTED AREA 1-2 TIMES DAILY UNTIL CLEAR, THEN USE NEEDED FOR FLARES 01/28 completed Not Available Not Available Not Available ID NOW COVID-19 Test Kit TEST DIRECTED 11/22 completed Not Available Not Available Not Available BinaxNOW COVID-19 Ag Self Test kit TEST DIRECTED TODAY 10/14 completed Not Available Not Available Not Available Vitals Date Recorded Body mass index (BMI) Body height Oxygen saturation Oxygen saturation in Arterial blood by Pulse oximetry Heart rate Respiratory rate Body temperature Body weight Systolic blood pressure Diastolic blood pressure Provider Name and Address Organization Details Last Updated DateTime 2 36.7 kg/m2 152.4 cm 98 % 98 % 78 /min 16 /min 97.2 [degF] 68120.3 7 g 130 mm[Hg] 92 mm[Hg] Not Available [facility] 3 22:22:29 Date Recorded Body height Body mass index (BMI) Body weight Body temperature Heart rate Respiratory rate Oxygen saturation Oxygen saturation in Arterial blood by Pulse oximetry Systolic blood pressure Diastolic blood pressure Provider Name and Address Organization Details Last Updated DateTime 3 152.4 cm 36.2 kg/m2 60474.0 4 g 97.8 [degF] 83 /min 16 /min 98 % 98 % 120 mm[Hg] 80 mm[Hg] Anahi Bailey RN [facility] DPSI [facility] 3 08:52:04 Date Recorded Body height Body mass index (BMI) Body weight Body temperature Respiratory rate Heart rate Oxygen saturation Oxygen saturation in Arterial blood by Pulse oximetry Systolic blood pressure Diastolic blood pressure Provider Name and Address Organization Details Last Updated DateTime 4 152.4 cm 37.6 kg/m2 40674.8 9 g 97.77 [degF] 20 /min 82 /min 97.98 % 97.98 % 122 mm[Hg] 80 mm[Hg] Anahi Bailey RN [facility] 4 10:13:34 Date Recorded Body height Body mass index (BMI) Body weight Body temperature Heart rate Respiratory rate Oxygen saturation Oxygen saturation in Arterial blood by Pulse oximetry Systolic blood pressure Diastolic blood pressure Provider Name and Address Organization Details Last Updated DateTime 4 152.4 cm 37.1 kg/m2 47951.5 5 g 97.2 [degF] 80 /min 20 /min 98 % 98 % 184 mm[Hg] 120 mm[Hg] Anahi Bailey RN [facility] 4 11:31:27 Social History Question Answer Notes LastModified by Organizat ion Details LastModified Time Tobacco Smoking Status Never Smoker Not Available [facility] 05/21/2022 22:22:09 Do You Have An Advance Directive? No [id number] Information not available 05/21/2022 What Is Your Level Of Alcohol Consumption? Occasional [id number] Information not available 05/21/2022 Do You Wear A Helmet When Biking? No N/A [id number] Information not available 05/21/2022 Is Blood Transfusion Acceptable In An Emergency? Yes Information not available 10/14/2022 What Is Your Level Of Caffeine Consumption? Occasional [id number] Information not available 05/21/2022 What Is Your Code Status? Full Code Information not available 10/14/2022 In The 14 Days Before Symptom Onset, Have You Had Close Contact With A Laboratory-confir med COVID-19 While That Case Was Ill? No [id number] Information not available 05/21/2022 In The 14 Days Before Symptom Onset, Have You Had Close Contact With A Person Who Is Under Investigation For COVID-19 While That Person Was Ill? No MIGRATION.67444 23687 Information not available 05/21/2022 What Type Of Diet Are You Following? 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 No MIGRATION.19080 89461 Information not available 05/21/2022 What Is The Fluoride Status Of Your Home? Unknown MIGRATION.60214 35594 Information not available 05/21/2022 Are There Any Guns Present In Your Home? No MIGRATION.52496 11059 Information not available 05/21/2022 Do You Use Insect Repellent Routinely? Yes MIGRATION.47477 50431 Information not available 05/21/2022 Where Do You Live? SingleLevelHouse Information not available 01/29/2024 Do You Have A Medical Power Of Pyrotechnic Assembler? No MIGRATION.34902 23746 Information not available 05/21/2022 How Many Children Do You Have? 2 Information not available 09/09/2023 Have You Ever Been Counseled For Unhealthy Alcohol Use? No MIGRATION.16000 28450 Information not available 05/21/2022 Do You Have Any Pets? Yes MIGRATION.94728 75170 Information not available 05/21/2022 What Is Your Relationship Status? MIGRATION.60867 92055 Information not available 05/21/2022 Do You Use Your Seat Belt Or Car Seat Routinely? Yes MIGRATION.36645 01085 Information not available 05/21/2022 Do You Have Smoke And Carbon Monoxide Detectors In Your Home? Yes MIGRATION.95925 19305 Information not available 05/21/2022 Are You Passively Exposed To Smoke? No Information no t available 01/29/2024 Are There Any Smokers In Your House? No MIGRATION.36383 87845 Information not available 05/21/2022 Do You Participate In Social Media? Yes MIGRATION.73890 98660 Information not available 05/21/2022 Do You Feel Stressed (tense, Restless, Nervous, Or Anxious, Or Unable To Sleep At Night)? [id number] Information not available 09/09/2023 Do You Use Any Illicit Or Recreational Drugs? No MIGRATION.70923 49556 Information not available 05/21/2022 Do You Use Sunscreen Routinely? Yes MIGRATION.16428 18658 Information not available 05/21/2022 Has Tobacco Cessation Counseling Been Provided? No MIGRATION.70888 09488 Information not available 05/21/2022 Have You Recently Traveled Abroad? No MIGRATION.07959 61024 Information not available 05/21/2022 Are You Currently In School? No MIGRATION.01831 01582 Information not available 05/21/2022 Do You Have Any Dietary Restrictions? No MIGRATION.68305 17266 Information not available 05/21/2022 Do You Or Have You Ever Used Any Other Forms Of Tobacco Or Nicotine? No MIGRATION.07555 82271 Information not available 05/21/2022 Sex: Female Functional Status Question Answer Note LastModified by Organizat ion Details LastModified Time What is your exercise level? None MIGRATION.[id number] Information not available 05/21/2022 Mental Status None recorded. Family History Relationship Description Onset Age of this Age Resolved Age Notes LastModified by Organization Details LastModified Time Father No current problems or disability [id number] Not available 05/21/2022 22:22:12 Mother No current problems or disability MIGRATION.793 [id number] Not available 05/21/2022 22:22:12 Medical History Condition Response HEADACHES/MIGRAINES Y Gynecological History Statement/Question Response Date of Last Mammogram 08/12/2022 Date of Last Pap Smear 02/20/2023 Current Control Method IUD Date of Last Colonoscopy Most Recent Mammogram 05/21/2022 Most Recent Bone Density Obstetrics History GPAL:G 0 P 0 0 0 0 Past Encounters Encounter ID Performer Location Encounter Start Date Encounter Closed Date Diagnosis/Indication Diagnosis SNOMED-CT Code Diagnosis ICD10 Code Diagnosis Note [id number] [facility] [address] [place] [address] 06/14/2020 00:00:00 06/14/2020 09:36:51 [id number] [facility] [address] [place] [address] 11/22/2020 00:00:00 11/22/2020 09:26:30 [id number] [facility] [address] [place] [address] 12/06/2020 00:00:00 12/06/2020 08:51:27 [id number] [facility] [address] [place] [address] 01/31/2021 00:00:00 01/31/2021 08:22:24 [id number] [facility] [address] [place] [address] 03/28/2021 00:00:00 03/28/2021 15:07:38 [id number] [facility] [address] [place] [address] 08/08/2021 00:00:00 08/08/2021 10:03:28 [id number] [facility] [address] [place] [address] 11/26/2021 00:00:00 11/26/2021 11:30:06 [id number] [facility] [address] [place] [address] 05/08/2022 00:00:00 05/08/2022 10:34:58 [id number] Anahi Mckeon NP [facility] [address] [place] [address] 10/14/2022 08:38:47 10/14/2022 09:23:33 Dry cough 35357141 R05.9 Referring to ultrasound technol. Keep water present at all times.FU prn. [id number] AMBER Wang [facility] [address] 09/09/2023 09:53:35 09/09/2023 10:43:10 Migraine 46727442 G43.909 Seasonal a llergic rhinitis 900256366 J30.2 Adult heal th examination 919776572 Z00.00 Vitamin D deficiency 347 14977 E55.9 Screening for malignant neoplasm of colon 152863547 Z12.11 Erythema of skin 8910700 08 L53.9 [id number] AMBER Wang [facility] [address] 01/29/2024 11:19:55 01/29/2024 12:11:01 Chronic cough 57075506 R05.3 Pain in right thumb 1076 [id number] 760725 M79.644 Likely related to tendonitis /inflammat ion. patient types for work daily. Will trial steroids and let us know if improved Health Concerns Section Related Observation LastModified by Organization Detai ls LastModified Time None Recorded Concern Status LastModified by Organization Details LastModified Time None Recorded Advance Directives Directive N: Payers Encounter Date Sequence Insurance Name Policy Number Policy Olguin Covered Member ID Olguin Member ID Guarantor Name 10/14/2022 1 [place] [id number] Breanna Camejo [id number] Breanna Camejo 09/09/2023 1 [place] [id number] Breanna Camejo [id number] Breanna Camejo 01/29/2024 1 [place] [id number] Breanna Camejo [id number] Breanna Camejo Notes Date Note Type Note Provider Name and Address Organization Details Recorded Time 10/14/2022 text/html Here for cough t hat won't go away. Dry cough. Started > 8 mo ago. fall, winter, and spring seasonsNonsmokerWon 't go away. Doesn't have drainage in throat. Others at [facility]ok noticing.Alegra and zyrtec did not help.Decongestants make her feel bad.Went to [place] in August 2022 and did not cough at all. Chest xray was ok after covid. Anahi Mckeon, [employer]UR FARM[employer] [address], [place], [address], [employer] 10/14/2022 09:15:13 09/09/2023 text/html Breanna Camejo i s a 43 year old female patient here today to establish care. She was previously under the care of Anahi Mckeon. She has a history of migraine headaches with aura. She takes topiramate 50 mg PO BID. She has done this for years and found it has nearly eliminated the migraines. She has seasonal allergies. She takes Zyrtec and flonase PRN. History of vitamin D deficiency. 28.3 in 2020. Large family history of colon cancer. Flu shot: declinesCOVID vaccine: declinesTdap: overdue, declinesMammogram: 08/18/2023WWE: 02/2024 managed by OBColonoscopy referral sent AMBER Wang [address], [place], [address], [employer] 09/09/2023 10:42:36 01/29/2024 text/html Breanna Camejo i s a 43 year old female patient here today for an intermittent dry cough She states she overall feels healthy. She does see an ultrasound technol. She is utilizing zyrtec and flonase.She describes this cough as a tickle in her throat. Very similar to when her allergies were flaring. AMBER Wang [address], [address], [place], [address], [employer] 01/29/2024 12:07:35 OBGyn Episode No OBEpisode recorded.
== END 2024-04-13 08:29 | disposition home or self-care (01) ==
PROVIDERS: Visit Provider Internal Medicine Gastroenterology
PROC: 0DJD8ZZ Inspection of Lower Intestinal Tract, Via Natural or Artificial Opening Endoscopic (ICD-10-PCS; CPT 45378; principal; 2024-04-13 08:00)
DX: Z12.11 Encounter for screening for malignant neoplasm of colon (principal); K64.8 Other hemorrhoids; E66.9 Obesity, unspecified; Z68.36 Body mass index [BMI] 36.0-36.9, adult; Z98.890 Other specified postprocedural states; Z87.891 Personal history of nicotine dependence; Z80.0 Family history of malignant neoplasm of digestive organs
CPT/HCPCS: 45378; J2704; J7120

== ENCOUNTER 2024-09-25 12:43 | Emergency (ER) | payer BC, SELFPAY ==
--- NOTE | 2024-09-25 12:48 | ED.EAR ---
HPI - Ear Problem General Chief complaint: Ear Stated complaint: ear pain Time Seen by Provider: 09/25/24 12:47 Source: patient Mode of arrival: ambulatory Limitations: no limitations History of Present Illness HPI Narrative: Breanna is a 44-year-old female patient presenting to the clinic today with complaints of left ear congestion/fluid behind the ear. She reports she has had popping and crackling sound in the left ear. Feels as though there is fluid behind her left ear. Denies any discomfort but is more aggravating. Denies any URI symptoms. No dizziness. No change in hearing. History of cerumen impaction Related Data Home Medications ?Medication ?Instructions ?Recorded ?Confirmed ?Last Taken ?Type topiramate 50 mg tablet (Topamax) 50 mg PO BID 09/13/19 04/13/24 04/12/24 History levonorgestrel (Mirena) 1 device intrauterine ONCE 08/10/20 04/13/24 04/12/24 History cetirizine 10 mg tablet (Zyrtec) 10 mg PO Q12H 09/28/23 04/13/24 04/12/24 History ergocalciferol (vitamin D2) 1,250 50,000 unit PO WEEKLY 03/02/24 04/13/24 04/12/24 History mcg (50,000 unit) capsule levothyroxine 25 mcg tablet 25 mcg PO ONCE 03/30/24 04/13/24 04/12/24 History Allergies Allergy/AdvReac Type Severity Reaction Status Date / Time erythromycin base AdvReac Intermediate Nausea and Verified 09/25/24 13:00 Vomiting Penicillins AdvReac Intermediate Nausea and Verified 09/25/24 13:00 Vomiting Review of Systems Review of Systems: Pertinent positives per HPI. Patient denies any fever, chills, rash, headache, visual changes, dizziness, cough, runny nose, sore throat, shortness of breath, chest pain, palpitations, nausea, vomiting, diarrhea, constipation, abdominal pain, or any urinary issues. [facility] Past Medical History Medical History Colon cancer screening Encounter for IUD insertion 2019 Vaginal delivery x1 08/09/02, full, vag, male, 7#13 Elective x1 04/1998 Migraine Surgical History Surgical History [place] teeth extracted 08/1996 History of tonsillectomy 2009 Family History Family History Father Diabetes mellitus Mother Thyroid disorder Grandparent Diabetes mellitus Other Colon cancer Hypertension Social History Social History Years smoked: 10 Smoking status: Former smoker Tobacco type: cigarettes Alcohol intake: current Alcohol use details: socially Substance use: never Substance use type: does not use Do You Feel Safe in your Home?: Yes Lack of Transportation: No Lack of Food: Never True Current Housing: I Have Housing Concerned About Future Housing: No Difficulty Paying Gas/Electric Bills: No Difficulty Paying for Meds: No Currently Unemployed: No Education: Trade/Vocational Certificate Difficulty w/ Childcare or Family Care: No Living arrangements: alone Occupation/Education: occupation Additional occupation/education comments: [employer] Gender identity (if verbalized by the patient): Female Sexual Orientation (if Verbalized by the Patient): Straight or Heterosexual Spiritual care concerns: No Agree to blood products: Yes Comments At the time of my signature, I reviewed and agree with the nursing past medical, surgical, social, and family history. There is no relevant family history pertinent to the patient complaint. Exam Narrative: General: Well-developed, well nourished, in no apparent distress Head: Normocephalic, atraumatic Eyes: Pupils equally round and reactive to light bilaterally, EOM intact, sclera and conjunctive clear, no discharge, lids normal Ears: Right TMs intact and clear, left TM intact with fluid bubbles noted behind the TM, ear canals clear, no drainage, grossly hearing normal. Nose: Nares patent, no discharge, no inflammation, no sinus tenderness. Mouth: Oropharynx without lesions or masses, good dentition, MMM. Neck: Supple, trachea midline, no enlargement of anterior or posterior cervical nodes, no thyroid masses or goiter palpable. Cardio: Regular rate and rhythm, s1 and s2 normal, no murmur appreciated. Resp: Clear to auscultation bilaterally anteriorly and posteriorly, no rhonchi, rales, wheezing or rubs Course Course Emergency Course: Portions of this record may have been created with voice recognition software. Level of Care: Express Care Visit Vital Signs Vital signs: Vital Signs Temperature 36.6 C 09/25/24 12:58 Pulse Rate 84 09/25/24 12:58 Respiratory Rate 18 09/25/24 12:58 Blood Pressure 138/93 H 09/25/24 12:58 Pulse Oximetry 100 09/25/24 12:58 Oxygen Delivery Room Air 09/25/24 12:58 Temperature 36.6 C 09/25/24 12:58 Pulse Rate 84 09/25/24 12:58 Respiratory Rate 18 09/25/24 12:58 Blood Pressure 138/93 H 09/25/24 12:58 Pulse Oximetry 100 09/25/24 12:58 Oxygen Delivery Room Air 09/25/24 12:58 Vital signs reviewed Medical Decision Making MDM Narrative Medical decision making narrative: At the time of visit patient is resting comfortably on the exam table. Patient appears to be nontoxic. Plan: I suspect patient has serous otitis. Prescription for prednisone was sent to the pharmacy. Supportive measures were discussed with the patient and they voiced understanding discharge instructions and agrees to treatment plan. Return precautions reviewed Differential Diagnosis Differential Diagnosis: Otitis media, otitis sternum eustachian tube dysfunction, cerumen impaction, upper respiratory infection, serous otitis Vital Signs Vital Signs: Vital Signs Temperature 36.6 C 09/25/24 12:58 Pulse Rate 84 09/25/24 12:58 Respiratory Rate 18 09/25/24 12:58 Blood Pressure 138/93 H 09/25/24 12:58 Pulse Oximetry 100 09/25/24 12:58 Oxygen Delivery Room Air 09/25/24 12:58 Temperature 36.6 C 09/25/24 12:58 Pulse Rate 84 09/25/24 12:58 Respiratory Rate 18 09/25/24 12:58 Blood Pressure 138/93 H 09/25/24 12:58 Pulse Oximetry 100 09/25/24 12:58 Oxygen Delivery Room Air 09/25/24 12:58 Discharge Plan Discharge Clinical Impression: Acute serous otitis media Qualifiers: Laterality: left Recurrence: non-recurrent Qualified Code(s): H65.02 - Acute serous otitis media, left ear Patient Disposition: Home Condition: Stable Instructions: Antibiotic Form, Fluid In The Ear (Serous Otitis Media) (ED) Additional Instructions: Take any prescribed medications only as directed-prednisone May take Flonase and xmgq-cso-[id number] antihistamine such as Zyrtec or Claritin Tylenol/motrin as needed for pain May use heating pad to alleviate pain If you get recurrent ear infections it may be warranted to follow up with ENT. Follow up with your PCP in 3-5 days if symptoms persist. Patient Language: [place] Prescriptions: New prednisone 20 mg tablet 40 mg PO DAILY 5 Days Qty: 10 0RF No Action cetirizine [Zyrtec] 10 mg Tablet 10 mg PO Q12H topiramate [Topamax] 50 mg tablet 50 mg PO BID ergocalciferol (vitamin D2) 1,250 mcg (50,000 unit) capsule 50,000 unit PO WEEKLY Patient Comments: 1 a week for 6 weeks Mirena 20 mcg/24 hours (6 yrs) 52 mg intrauterine device 1 device intrauterine ONCE Rx Instructions: as a single dose levothyroxine 25 mcg tablet 25 mcg PO ONCE Follow-up/Referrals: Jacki,Marni Mims, FACILITIES OFFICER [Primary Care Provider] - Time of Disposition: 13:05 Quality NIHSS Nursing Documentation ED NIHSS nursing documentation: reviewed/agree
--- OUTSIDE RECORDS SUMMARY | 2024-09-25 12:49 | XMS_ITS | Patient Health Record ---
Author Organization [facility] [facility] [place] ([address]) Address [address] [place] [address] Care Team Providers Care Sleeve Maker Name Role Phone Anahi Mcgraw Primary Care Provider Rod Mortensen Unavailable [phone] Allergies Allergen (clinical drug ingredient) Drug/Non Drug Allergy documented on EMR Reaction Allergy Type Onset Date Status erythromycin Erythromycin vomiting Drug Allergy A ctive Reason For Referral No Information Medications Medication SIG (Take, Route, Frequency, Duration) Notes Start Date End Date Status CETIRIZINE 10 mg 1 tab(s) orally BID; Duration: 30 days 11/03/2022 Active MIRENA 52 mg 1 ea by intrauterine administration once; Duration: 1 dose(s) Active TOPAMAX 50 mg 1 tab(s) orally 2 times a day; Duration: 30 day(s) Active Cetirizine HCl 10 MG 1 tab(s) orally BID; Duration: 30 days 11/03/2022 Active Mirena (52 MG) 52 MG 1 EA BY INTRAUTERINE ADMINISTRATION ONCE; Duration: 1 DOSE(S) *Please review and pick correct strength-formulati on from Medispan options. If intended option is not shown, discontinue and re-order from Quick Search* Active Topamax 50 MG 1 tab(s) orally 2 times a day; Duration: 30 day(s) Active Social History Tobacco Use: Social History Observation Description Date Details (start date - stop date) Former Smoker NA - NA Smoking Smart Form: Question Answer Notes Are you a: former smoker Additional Findings:Tobacco Non-User Current non -smoker Problems Problem Type SNOMED Code ICD Code Onset Dates Problem Status W/U Status Risk Notes Problem Chronic allergic conjunctivitis (77110054) Other chronic allergic conjunctivitis (H10.45) Active confirmed Problem Allergic rhinitis caused by pollen (disorder) (71499948) Allergic rhinitis due to pollen (J30.1) Active confirmed Problem Allergic rhinitis (37048323) Other allergic rhinitis (J30.89) Active confirmed Problem Allergic rhinitis caused by animal hair and dander (611486748633167) Allergic rhinitis due to animal (cat) (dog) hair and dander (J30.81) Active confirmed Problem Urticaria (106786852) Other urticaria (L50.8) Active confirmed Problem Elevated blood pressure reading without diagnosis of hypertension (615933334) Elevated blood-pressure reading, without diagnosis of hypertension (R03.0) Active confirmed Problem Intolerance to lactose (finding) (334599989) Lactose intolerance, unspecified (E73.9) Active confirmed Problem Allergy status t o other antibiotic agents (Z88.1) Active confirmed Problem Chronic cough (10984077) Chronic cough (R05.3) Active confirmed Plan Of Treatment No Information Insurance Providers Payer Name Payer Address Payer Phone Subscriber Number Group Number Insured Name Patient Relationship to Insured Coverage Start Date Coverage End Date [facility] [address] [place] [address] [phone] [id number] Breanna Vazquez Self - patient is the insured Medical (General) History Surgical History Surgery Date(Month/Year) Tonsillectomy 03/01/2010
--- OUTSIDE RECORDS SUMMARY | 2024-09-25 12:49 | XMS_ITS | Data Portability ---
Author Organization [facility], Main Office Address [address] [place] [address] Assessment No assessment recorded. Plan of Treatment Reminders Order Date Submit Date Provider Last Modified By Organization Details Last Modified Time Details Appointments None recorded. Lab urinalysis, dipstick [address], [address], 5 12:58:58 hemoglobin A1C, fingerstick [address], [address], 5 12:52:40 vitamin D, 25-hydroxy, total, serum 2023 024 [facility], [address], [address], 4 08:05:14 CMP, serum or plasma 2023 024 [facility], [address], [address], 4 08:05:14 CBC w/ auto diff 2023 024 [facility], [address], [address], 4 08:05:14 lipid panel, serum 2023 024 [facility], [address], [address], 4 08:05:14 HbA1c (hemoglobin A1c), blood 2023 024 [facility], [address], [address], 4 08:05:14 TSH, serum or plasma 2023 024 [facility], [address] [address], [place], [address], 4 08:05:[address] referral - Please call patient to schedule an appointment . Thank you. 2023 024 [email or web address] [facility], [place], [facility] [facility], [place], [address], 4 08:55:03 gastroenter ologist referral - Please call patient to schedule an appointment . Thank you. 2023 024 [email or web address] [facility], [address], [address], [place], [address], 4 09:57:06 punchboard inserter referral 2022 023 [email or web address] 3 Heike Hall MD, [address] [place], [address], 3 08:38:52 Procedures None recorded. Surgeries None recorded. Imaging US, thyroid - Please call pt to schedule 2023 024 [email or web address] [address] [facility], [address], [place], [address], 4 09:00:29 Medication Orders nitrofurant oin monohydrate /macrocryst als 100 mg capsule 2024 025 [facility]178, [address] [facility], [place], [place], [id number], 5 12:44:49 Medrol (Michael) 4 mg tablets in a dose pack [address] [id number], [address] [facility], [place], [place], [id number], 5 12:30:11 topiramate 50 mg tablet 2023 024 [facility] #17099, [address] [facility], [place], [place], [id number], 4 10:37:06 cetirizine 10 mg capsule [address] [facility]94285, [address] [facility], [place], [place], [id number], 4 11:28:12 Patient TargetsNo targets recorded. Patient InstructionsNo instructions recorded. 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 Thank you. Referring Physician: Marni Echeverria [facility], Encounter Date: 09/09/2023 Search Manager Referral for E rythema of skin Please call patient to schedule an appointment. Thank you. Referring Physician: Marni Echeverria [facility], Encounter Date: 09/09/2023 Results Created Date Observation Date Name Description Value Unit Range Abnormal Flag Note LastModifiedBy Organization Detail LastModifiedTime 02/01/20 24 02/02/2024 LIPID PANEL , STAND PEGGY cholesterol, total 169 mg/dL <200 normal Not Available [facility] [address] [place], [address], 02/02/2024 06:00:26 02/01/20 24 02/02/2024 LIPID PANEL , STAND PEGGY HDL cholesterol 52 mg/dL > or = 50 normal Not Available [facility] [address] [place], [address], 02/02/2024 06:00:26 02/01/20 24 02/02/2024 LIPID PANEL , STAND PEGGY triglyceride s 61 mg/dL <150 normal Not Available [facility] [address] [address] [place], [address], 02/02/2024 06:00:26 02/01/20 24 02/02/2024 LIPID PANEL , STAND PEGGY LDL-choleste rol 102 mg/dL _(angélica c) high Refer ence range : <100 Cecilio able range <100 mg/dL for prima ry preve ntion ; <70 mg/dL for patie nts with CHD or diabe tic patie nts with > or = 2 CHD risk facto rs. LDL-C is now calcu lated using the Luciana n-Hop kins calcu feli n, which is a valid ated novel malissa bacon than the Fried marly equat ion in the estim ation of LDL-C . Luciana keith SS et al. COLTEN. 2013; 310(1 9): 2061- 2068 (http ://ed ucati on.Qu Zafar cunha Everyday.me. com/f aq/FA Q164) Not Available [facility] [address] [place], [address], 02/02/2024 06:00:26 02/01/20 24 02/02/2024 LIPID PANEL , STAND PEGGY chol/HDLC ratio 3.3 (calc ) <5.0 normal Not Available [facility] [address] [place], [address], 02/02/2024 06:00:26 02/01/20 24 02/02/2024 LIPID PANEL , STAND PEGGY non HDL cholesterol 117 mg/dL _(angélica c) <130 normal For patie nts with diabe patricia plus 1 major ASCVD risk facto r, treat ing to a non-H DL-C goal of <100 mg/dL (LDL- C of <70 mg/dL ) is elfego espino optio n. Not Available [address], [address], 02/02/2024 06:00:26 02/01/20 24 02/02/2024 COMPR EHENS KINGSLEY METAB OLIC PANEL glucose 86 mg/dL 65-99 normal Fasti ng refer ence inter rob Not Available [address], [address], 02/02/2024 06:00:28 02/01/20 24 02/02/2024 COMPR EHENS KINGSLEY METAB OLIC PANEL urea nitrogen (BUN) 14 mg/dL 7-25 normal Not Available [address] [place], [address], 02/02/2024 06:00:28 02/01/20 24 02/02/2024 COMPR EHENS KINGSLEY METAB OLIC PANEL creatinine 0.90 mg/dL 0.50-0 .99 normal Not Available [address], [address], 02/02/2024 06:00:28 02/01/20 24 02/02/2024 COMPR EHENS KINGSLEY METAB OLIC PANEL eGFR 80 mL/mi n/1.7 3m2 > or = 60 normal Not Available [address], [address], 02/02/2024 06:00:28 02/01/20 24 02/02/2024 COMPR EHENS KINGSLEY METAB OLIC PANEL BUN/creatini ne ratio SEE NOTE: (calc ) 6-22 Not Repor lydia: BUN and Creat inine are withi n refer ence range . Not Available [address] [place], [address], 02/02/2024 06:00:28 02/01/20 24 02/02/2024 COMPR EHENS KINGSLEY METAB OLIC PANEL sodium 139 mmol/ L 135-14 6 normal Not Available [address], [address], 02/02/2024 06:00:28 02/01/20 24 02/02/2024 COMPR EHENS KINGSLEY METAB OLIC PANEL potassium 3.5 mmol/ L 3.5-5. 3 normal Not Available [address], [address], 02/02/2024 06:00:28 02/01/20 24 02/02/2024 COMPR EHENS KINGSLEY METAB OLIC PANEL chloride 108 mmol/ L 98-110 normal Not Available [address], [address], 02/02/2024 06:00:28 02/01/20 24 02/02/2024 COMPR EHENS KINGSLEY METAB OLIC PANEL carbon dioxide 21 mmol/ L 20-32 normal Not Available [address], [address], 02/02/2024 06:00:28 02/01/20 24 02/02/2024 COMPR EHENS KINGSLEY METAB OLIC PANEL calcium 9.0 mg/dL 8.6-10 .2 normal Not Available [address], [address], 02/02/2024 06:00:28 02/01/20 24 02/02/2024 COMPR EHENS KINGSLEY METAB OLIC PANEL protein, total 7.0 g/dL 6.1-8. 1 normal Not Available [address], [address], 02/02/2024 06:00:28 02/01/20 24 02/02/2024 COMPR EHENS KINGSLEY METAB OLIC PANEL albumin 4.6 g/dL 3.6-5. 1 normal Not Available [address], [address], 02/02/2024 06:00:28 02/01/20 24 02/02/2024 COMPR EHENS KINGSLEY METAB OLIC PANEL globulin 2.4 g/dL_ (calc ) 1.9-3. 7 normal Not Available [address], [address], 02/02/2024 06:00:28 02/01/20 24 02/02/2024 COMPR EHENS KINGSLEY METAB OLIC PANEL albumin/glob ulin ratio 1.9 (calc ) 1.0-2. 5 normal Not Available [address], [address], 02/02/2024 06:00:28 02/01/20 24 02/02/2024 COMPR EHENS KINGSLEY METAB OLIC PANEL bilirubin, total 0.4 mg/dL 0.2-1. 2 normal Not Available [address], [address], 02/02/2024 06:00:28 02/01/20 24 02/02/2024 COMPR EHENS KINGSLEY METAB OLIC PANEL alkaline phosphatase 58 U/L 31-125 normal Not Available [address] [address] [place], [address], 02/02/2024 06:00:28 02/01/20 24 02/02/2024 COMPR EHENS KINGSLEY METAB OLIC PANEL AST 11 U/L 10-35 normal Not Available [address], [address], 02/02/2024 06:00:28 02/01/20 24 02/02/2024 COMPR EHENS KINGSLEY METAB OLIC PANEL ALT 11 U/L 6-29 normal Not Available [address], [address], 02/02/2024 06:00:28 02/01/20 24 02/02/2024 CBC (INCL UDES DIFF/ PLT) white blood cell count 13.1 thous and/u L 3.8-10 .8 high Not Available [address], [address], 02/02/2024 06:00:29 02/01/20 24 02/02/2024 CBC (INCL UDES DIFF/ PLT) red blood cell count 5.13 delores on/uL 3.80-5 .10 high Not Available [address], [address], 02/02/2024 06:00:29 02/01/20 24 02/02/2024 CBC (INCL UDES DIFF/ PLT) hemoglobin 15.5 g/dL 11.7-1 5.5 normal Not Available [address], [address], 02/02/2024 06:00:29 02/01/20 24 02/02/2024 CBC (INCL UDES DIFF/ PLT) hematocrit 48.5 % 35.0-4 5.0 high Not Available [address], [address], 02/02/2024 06:00:29 02/01/20 24 02/02/2024 CBC (INCL UDES DIFF/ PLT) MCV 94.5 fL 80.0-1 00.0 normal Not Available [address], [address], 02/02/2024 06:00:29 02/01/20 24 02/02/2024 CBC (INCL UDES DIFF/ PLT) MCH 30.2 pg 27.0-3 3.0 normal Not Available [address], [address], 02/02/2024 06:00:29 02/01/20 24 02/02/2024 CBC (INCL UDES DIFF/ PLT) MCHC 32.0 g/dL 32.0-3 6.0 normal For adult s, a sligh t decre ase in the calcu lated MCHC value (in the range of 30 to 32 g/dL) is most likel y not clini remy signi fican t; dinoraev er, it shoul d be inter prete d with cauti on in corre latio n with other red cell young eters and the patie nt's clini angélica condi tion. Not Available [facility] [address], [address], 02/02/2024 06:00:29 02/01/2002/02/2024 CBC (INCL UDES DIFF/ PLT) RDW 12.6 % 11.0-1 5.0 normal Not Available [facility] [address], [address], 02/02/2024 06:00:29 02/01/20 24 02/02/2024 CBC (INCL UDES DIFF/ PLT) platelet count 390 thous and/u L 140-40 0 normal Not Available [facility] [address], [address], 02/02/2024 06:00:29 02/01/20 24 02/02/2024 CBC (INCL UDES DIFF/ PLT) MPV 11.0 fL 7.5-12 .5 normal Not Available [facility] [address], [address], 02/02/2024 06:00:29 02/01/20 24 02/02/2024 CBC (INCL UDES DIFF/ PLT) absolute neutrophils 9484 cells /uL 1500-7 800 high Not Available [facility] [address], [address], 02/02/2024 06:00:29 02/01/20 24 02/02/2024 CBC (INCL UDES DIFF/ PLT) absolute lymphocytes 2699 cells /uL 850-39 00 normal Not Available [address], [address], 02/02/2024 06:00:29 02/01/20 24 02/02/2024 CBC (INCL UDES DIFF/ PLT) absolute monocytes 838 cells /uL 200-95 0 normal Not Available [address], [address], 02/02/2024 06:00:29 02/01/20 24 02/02/2024 CBC (INCL UDES DIFF/ PLT) absolute eosinophils 13 cells /uL 15-500 low Not Available [address], [address], 02/02/2024 06:00:29 02/01/20 24 02/02/2024 CBC (INCL UDES DIFF/ PLT) absolute basophils 66 cells /uL 0-200 normal Not Available [address], [address], 02/02/2024 06:00:29 02/01/20 24 02/02/2024 CBC (INCL UDES DIFF/ PLT) neutrophils 72.4 % normal Not Available [address], [address], 02/02/2024 06:00:29 02/01/20 24 02/02/2024 CBC (INCL UDES DIFF/ PLT) lymphocytes 20.6 % normal Not Available [address], [address], 02/02/2024 06:00:29 02/01/20 24 02/02/2024 CBC (INCL UDES DIFF/ PLT) monocytes 6.4 % normal Not Available [address], [address], 02/02/2024 06:00:29 02/01/20 24 02/02/2024 CBC (INCL UDES DIFF/ PLT) eosinophils 0.1 % normal Not Available [facility] [address] [address] [place], [address], 02/02/2024 06:00:29 02/01/20 24 02/02/2024 CBC (INCL UDES DIFF/ PLT) basophils 0.5 % normal Not Available [facility] [address] [address] [place], [address], 02/02/2024 06:00:29 02/01/20 24 02/02/2024 TSH W/REF MOHAN TO FT4 TSH w/reflex to FT4 3.80 mIU/L normal Refer ence Range > or = 20 Years 0.40- 4.50 Pregn bereket Range s First trime ster 0.26- 2.66 Secon d trime ster 0.55- 2.73 Third trime ster 0.43- 2.91 Not Available [address] [address] [place], [address], 02/02/2024 06:00:30 02/01/20 24 02/02/2024 VITAM IN D,25- OH,TO RICKY,I A vitamin D,25-oh,tota l,ia 25 NG/mL 30-100 [...] /MS is recom chuck d: order code [id number] (syeda ents >2yrs ). See Note 1 Note 1 For addit ional infor cony monge e refer to http: //kevin Balderas stDia gnost ics.c om/fa q/FAQ 199 (This link is being provi ded for infor matio nal/ educa dago l purpo ses only. ) Not Available [facility] [address] [address] [place], [address], 02/02/2024 06:00:31 02/01/20 24 02/02/2024 HEMOG LOBIN [...] non-p regna nt diabe tic patie nts. Diffe rent metri cs may apply to speci fic patie nt popul ation s. [facility] Medic al Care in Diabe patricia(A DA). Not Available [facility] [address] [address] [place], [address], 02/02/2024 06:00:32 05/09/19 25 05/10/2024 TSH W/REF MOHAN TO FT4 TSH w/reflex to FT4 1.65 mIU/L normal Refer ence Range > or = 20 Years 0.40- 4.50 Pregn bereket Range s First trime ster 0.26- 2.66 Secon d trime ster 0.55- 2.73 Third trime ster 0.43- 2.91 Not Available [facility] [address] [place], [address], 05/10/2024 10:46:37 05/09/19 25 05/10/2024 VITAM IN D,25- OH,TO RICKY,I A vitamin D,25-oh,tota l,ia 39 NG/mL 30-100 normal Vitam in D Statu s 25-OH Vitam [...] /MS is recom chuck d: order code [id number] (syeda ents >2yrs ). See Note 1 Note 1 For addit ional infor cony monge refer to http: //[facility] keith.Adis stDia gnost ics.c om/fa q/FAQ 199 (This link is being provi ded for infor helen munoz/ rosa elena [place] purpo ses only. ) Not Available [facility] [address] [place], [address], 05/10/2024 10:46:38 08/25/1908/24/2024 urina lysis , dipst ick Leukocytes (reference range: negative nora/ l) Negati ve Not Available [address], [address], 08/24/2024 12:43:17 08/25/19 25 08/24/2024 urina lysis , dipst ick Nitrite (reference rage: negative mg/dl) negati ve Not Available [address], [address], 08/24/2024 12:43:17 08/25/19 25 08/24/2024 urina lysis , dipst ick Urobilinogen (reference range: 0.2-1 mg/dl) 0.2 Not Available [facility] [address], [address], 08/24/2024 12:43:17 08/25/1908/24/2024 urina lysis , dipst ick Protein (reference range: negative mg/dl) Negati ve Not Available [address], [address], 08/24/2024 12:43:17 08/25/1908/24/2024 urina lysis , dipst ick pH (reference range: 5-7) 5.0 Not Available [address], [address], 08/24/2024 12:43:17 08/25/19 25 08/24/2024 urina lysis , dipst ick Blood (reference range: negative Rakesh/ l) Negati ve Not Available [address], [address], 08/24/2024 12:43:17 08/25/1908/24/2024 urina lysis , dipst ick Specific Willis (reference range: 1.005-1.030) 1.020 Not Available [address], [address], 08/24/2024 12:43:17 08/25/1908/24/2024 urina lysis , dipst ick Ketone (reference range: negative mg/dl) Negati ve Not Available [address], [address], 08/24/2024 12:43:17 08/25/19 25 08/24/2024 urina lysis , dipst ick Bilirubin (reference range: negative mg/dl) Negati ve Not Available [address] [place], [address], 08/24/2024 12:43:17 08/25/19 25 08/24/2024 urina lysis , dipst ick Glucose (reference range: negative mg/dl) Negati ve Not Available [address], [address], 08/24/2024 12:43:17 08/25/1908/24/2024 urina lysis , dipst ick Appearance Clear Not Available [address], [address], 08/24/2024 12:43:17 08/25/1908/24/2024 urina lysis , dipst ick Color Yellow Not Available [address], [address], 08/24/2024 12:43:17 08/25/19 25 08/24/2024 hemog lobin A1C, finge rstic k HgbA1C 5.6 Not Available [address], [address], 08/24/2024 12:43:24 08/14/19 23 08/12/2022 MAMMO , scree moreno, bilat eral No observ ation record ed. [email or web address] [facility] [address], [place], [address], 10/14/2022 08:54:08 01/26/2001/25/2023 XR, ankle No observ ation record ed. [email or web address] [facility] [address], [place], [address], 01/27/2023 18:32:24 08/18/19 24 08/18/2023 MAMMO , scree moreno, bilat eral No observ ation record ed. [email or web address] [facility] [address], [place], [address], 08/18/2023 14:22:18 03/17/20 24 03/17/2024 US, thyro id No observ ation record ed. [email or web address] [facility] [address], [place], [address], 03/24/2024 11:31:00 Result Notes None recorded. 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 Not Available [facility] 3 22:22:33 Migraine 70061826 Active 2020 Not Available [facility] 3 22:22:33 Obesity 607112392 Active 2021 Not Available [facility] 3 22:22:33 Essential hypertens ion 22296163 Active 2020 Not Available [facility] 3 22:22:33 COVID-19 347374620 Active 2021 Not Available [facility] 3 22:22:33 Dry cough 25008313 Active 2022 Anahi Mckeon, WILFREDO [address], [address], [place], [address] , [place] [facility] [employer] 3 09:00:12 Seasonal allergic rhinitis 724471346 Active 2023 AMBER Wang [address], [address], [place], [address] , [place] [facility] [employer] 4 10:24:43 Vitamin D deficienc y 58578580 Active 2023 AMBER Wang [address], [address], [place], [address] , [employer] 4 10:28:38 Erythema of skin 367215564 Active 2023 AMBER Wang [address], [address], [place], [address] , [employer] 4 10:37:48 Chronic cough 66722378 Active 2023 AMBER Wang [address], [address], [place], [address] , [employer] 4 11:51:03 Pain in right thumb 699787344203 9102 Active 2023 AMBER Wang [address], [address], [place], [address] , [employer] 4 12:05:35 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 Procedures Surgical History Date Name Laterality Status Provider Name and Address Organization Details Recorded Time 01/29/20 24 Cerumen Removal completed AMBER Wang [address], [address], [place], [address], [employer] 01/29/2024 12:07:09 02/21/20 Date of Last Pap Smear completed Anahi Bailey RN [facility] 09/09/2023 10:14:55 05/22/19 Most Recent Mammogram completed Anahi Bailey RN [facility] 10/14/2022 08:53:16 Tonsillectomy completed Not Available [facility] 05/21/2022 22:22:12 Imaging Results None recorded. Procedure Notes None recorded. Medical Equipment None Reported. Allergies Allergen ID Allergen Name Allergen Category Reaction Reaction Severity Criticality Documentation Date Start Date Code Code System Note Provider Name and Address Organization Details Recorded Time 55223 Product containin g penicilli n (product) medicatio n Not available Not available Not available 05/21/2022 85795 8001 SNOMED unkno wn react ion as a child . Mothe r is PCN aller gic. Not Available [facility] 3 22:23:18 93536 erythromy david medicatio n vomiting moderate Not available 05/21/2022 4053 RxNorm Not Available [facility] 3 22:23:18 Medications Name Sig Start Date [...] DAILY FOR 5-7 DAYS NEEDED FOR FLARES 08/24 completed Not Available Not Available Not Available cefuroxime axetil 250 mg tablet TK [...] MOUTH EVERY 12 HOURS FOR 7 DAYS 06/19 /2024 completed Not Available Not Available Not Available levothyroxi ne 25 mcg tablet TAKE 1 TABLET BY MOUTH DAILY BEFORE BREAKFAST active Not Available Not Available No t [...] TAKE 1 CAPSULE BY MOUTH EVERY WEEK DIRECTED active Not Available Not Available No t Available levofloxaci n 500 mg tablet TK 1 T PO QD active Not Available Not Available No t Available methylpredn isolone 4 mg tablets in a dose pack FOLLOW PACKAGE DIRECTION S 08/24 completed Not Available Not Available Not Available doxycycline hyclate 100 mg tablet TAKE 1 TABLET BY MOUTH TWICE DAILY FOR 7 DAYS 01/28 completed Not Available Not Available Not Available naproxen 500 mg tablet TAKE 1 TABLET BY MOUTH TWICE DAILY 10/14 completed Not Available Not Available Not Available topiramate 50 mg tablet TAKE 1 TABLET BY MOUTH TWICE DAILY 2024 active Not Available Not Available Not Avai lable nitrofurant oin monohydrate /macrocryst als 100 mg capsule TAKE 1 CAPSULE BY MOUTH EVERY 12 HOURS FOR 5 DAYS DIRECTED active Not Available Not Available [...] Available Not Available Vitals Date Recorded Body height Body mass index (BMI) Body weight Body temperature Heart rate Respiratory rate Oxygen saturation Oxygen saturation in Arterial blood by Pulse oximetry Systolic And Diastolic Provider Name and Address Organization Details Last Updated DateTime 5 152.4 cm 37.9 kg/m2 10236.3 2 g 97.2 [degF] 84 /min 20 /min 98 % 98 % 168/118 mm[Hg] Anahi Bailey RN [facility] [employer] [facility] 5 12:32:25 Date Recorded Body height Body mass index (BMI) Body weight Body temperature Respiratory rate Heart rate Oxygen saturation Oxygen saturation in Arterial blood by Pulse oximetry Systolic And Diastolic Provider Name and Address Organization Details Last Updated DateTime 4 152.4 cm 37.6 kg/m2 74652.8 9 g 97.77 [degF] 20 /min 82 /min 97.98 % 97.98 % 122/80 mm[Hg] Anahi Bailey RN [facility] [employer] [facility] 4 10:13:34 Date Recorded Body height Body mass index (BMI) Body weight Body temperature Heart rate Respiratory rate Oxygen saturation Oxygen saturation in Arterial blood by Pulse oximetry Systolic And Diastolic Provider Name and Address Organization Details Last Updated DateTime 3 152.4 cm 36.2 kg/m2 54159.0 4 g 97.8 [degF] 83 /min 16 /min 98 % 98 % 120/80 mm[Hg] Anahi Bailey RN [facility] [employer] [facility] 3 08:52:04 Date Recorded Body height Body mass index (BMI) Body weight Body temperature Heart rate Respiratory rate Oxygen saturation Oxygen saturation in Arterial blood by Pulse oximetry Systolic And Diastolic Provider Name and Address Organization Details Last Updated DateTime 4 152.4 cm 37.1 kg/m2 77470.5 5 g 97.2 [degF] 80 /min 20 /min 98 % 98 % 184/120 mm[Hg] Anahi Bailey RN [place] - [facility] 4 11:31:27 Social History Question Answer Notes LastModified by Organizat ion Details LastModified Time Tobacco Smoking Status Never Smoker Not Available [facility] 05/21/2022 22:22:09 Do You Have An Advance Directive? No [id number] Information not available 05/21/2022 Do You Wear A Helmet When Biking? No N/A [id number] Information not available 05/21/2022 Is Blood Transfusion Acceptable In An Emergency? Yes Information not available 10/14/2022 What Is Your Level Of Caffeine Consumption? Occasional [id number] Information not available 05/21/2022 What Is Your Code Status? Full Code Information not available 10/14/2022 In The 14 Days Before Symptom Onset, Have You Had Close Contact With A Laboratory-confir med COVID-19 While That Case Was Ill? No [id number] Information not available 05/21/2022 In The 14 Days Before Symptom Onset, Have You Had Close Contact With A Person Who Is Under Investigation For COVID-19 While That Person Was Ill? No MIGRATION.26107 [id number] Information not available 05/21/2022 What Type Of Diet Are You Following? REGULAR MIGRATION.91279 73191 Information not available 05/21/2022 Have There Been Any Changes To Your Family Or Social Situation? No MIGRATION.08484 44114 Information not available 05/21/2022 What Is The Fluoride Status Of Your Home? Unknown MIGRATION.91741 56119 Information not available 05/21/2022 Are There Any Guns Present In Your Home? No MIGRATION.93424 02651 Information not available 05/21/2022 Do You Use Insect Repellent Routinely? Yes MIGRATION.91945 96314 Information not available 05/21/2022 Where Do You Live? SingleLevelHouse Information not available 01/29/2024 Do You Have A Medical Power Of Weekend Receptionist? No MIGRATION.92505 90050 Information not available 05/21/2022 How Many Children Do You Have? 2 Information not available 09/09/2023 Have You Ever Been Counseled For Unhealthy Alcohol Use? No MIGRATION.78057 00150 Information not available 05/21/2022 Do You Have Any Pets? Yes MIGRATION.02418 65924 Information not available 05/21/2022 What Is Your Relationship Status? MIGRATION.02083 91574 Information not available 05/21/2022 Do You Use Your Seat Belt Or Car Seat Routinely? Yes MIGRATION.29710 15400 Information not available 05/21/2022 Do You Have Smoke And Carbon Monoxide Detectors In Your Home? Yes MIGRATION.83105 47892 Information not available 05/21/2022 Are You Passively Exposed To Smoke? No Information no t available 01/29/2024 Are There Any Smokers In Your House? No MIGRATION.34725 04388 Information not available 05/21/2022 Do You Participate In Social Media? Yes MIGRATION.81461 53602 Information not available 05/21/2022 Do You Use Sunscreen Routinely? Yes MIGRATION.37719 26489 Information not available 05/21/2022 Has Tobacco Cessation Counseling Been Provided? No MIGRATION.46841 23433 Information not available 05/21/2022 Have You Recently Traveled Abroad? No MIGRATION.87701 88755 Information not available 05/21/2022 Are You Currently In School? No MIGRATION.75901 57350 Information not available 05/21/2022 Do You Have Any Dietary Restrictions? No MIGRATION.68142 36381 Information not available 05/21/2022 Sex: Female Functional Status Question Answer Note LastModified by Organizat ion Details LastModified Time Do you use any illicit or recreational drugs? No MIGRATION.459481 1164 Information not available 05/21/2022 Do you or have you ever used any other forms of tobacco or nicotine? No MIGRATION.676821 4365 Information not available 05/21/2022 What is your level of alcohol consumption? 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 None MIGRATION.729233 3990 Information not available 05/21/2022 Mental Status Question Answer Note LastModified by Organization D etails LastModified Time Do you feel stressed (tense, restless, nervous, or anxious, or unable to sleep at night)? [id number] Information not available 09/09/2023 Family History Relationship Description Onset Age of this Age Resolved Age Notes LastModified by Organization Details LastModified Time Father No current problems or disability MIGRATION.232 [id number] Not available 05/21/2022 22:22:12 Mother No current problems or disability MIGRATION.784 [id number] Not available 05/21/2022 22:22:12 Medical History Condition [...] SNOMED-CT Code Diagnosis ICD10 Code Diagnosis Note [id number] Fish Myles MD [address] [address] 06/14/2020 00:00:00 06/14/2020 09:36:51 [id number] Fish Myles MD [address] [address] 1 11/22/2020 00:00:00 11/22/2020 09:26:30 [id number] Fish Myles MD [address] [address] 1 12/06/2020 00:00:00 12/06/2020 08:51:27 [id number] Fish Myles MD [address] [address] 1 01/31/2021 00:00:00 01/31/2021 08:22:24 [id number] Fish Myles MD [address] [address] 1 03/28/2021 00:00:00 03/28/2021 15:07:38 [id number] Fish Myles MD [address] [address] 1 08/08/2021 00:00:00 08/08/2021 10:03:28 [id number] Anahi Mckeon NP [address] [address] 1 11/26/2021 00:00:00 11/26/2021 11:30:06 [id number] Fish Myles MD [address] [address] 1 05/08/2022 00:00:00 05/08/2022 10:34:58 [id number] Anahi Mckeon NP [address] [address] 1 10/14/2022 08:38:47 10/14/2022 09:23:33 Dry cough 90610793 R05.9 Referring to punchboard inserter. Keep water present at all times.FU prn. [id number] Fish Myles MD [address] [address] 1 09/09/2023 09:53:35 09/09/2023 10:43:10 Migraine 54836523 G43.909 Seasonal a llergic rhinitis 296704966 J30.2 Adult [facility] th examination 189106676 Z00.00 Vitamin D deficiency 347 34115 E55.9 Screening for malignant neoplasm of colon 113638005 Z12.11 Erythema of skin 8479663 08 L53.9 [id number] Fish Myles MD [address] [address] 1 01/29/2024 11:19:55 01/29/2024 12:11:01 Chronic cough 52494853 R05.3 Pain in right thumb 1076 828957 830734 M79.644 Likely related to tendonitis /inflammat ion. patient types for work daily. Will trial steroids and let us know if improved [id number] AMBER Wang [address] [address] 08/24/2024 12:21:04 08/24/2024 12:51:59 Increased frequency of urination 912183516 R35.0 Frequency began on Sundayshe is leaving for vacation tomorrow, I will send abx but advised her this is not needed at this time, she can take if symptoms worsen. Pt is agreeable Health Concerns Section Related Observation LastModified by Organization Detai ls LastModified Time None Recorded Concern Status LastModified by Organization Details LastModified Time None Recorded Advance Directives Directive N: Payers Insurance Date Sequence Insurance Name Policy Number Policy Olguin Covered Member ID Olguin Member ID Guarantor Name 08/24/2024 1 [facility] [id number] Breanna Camejo [id number] Breanna Camejo Notes Date Note Type Note Provider Name and Address Organization Details Recorded Time 10/14/2022 text/html Here for cough t hat won't go away. Dry cough. Started > 8 mo ago. fall, winter, and spring seasonsNonsmokerWon 't go away. Doesn't have drainage in throat. Others at [facility] noticing.Alegra and zyrtec did not help.Decongestants make her feel bad.Went to [place] in August 2022 and did not cough at all. Chest xray was ok after covid. Anahi Mckeon NP [address] [place] [address], [place], [address], [place] [facility] 10/14/2022 09:15:13 09/09/2023 text/html Breanna Camejo i [...] by OBColonoscopy referral sent AMBER Wang [address], [place], [address], [employer] 09/09/2023 10:42:36 01/29/2024 text/html Breanna Camejo i s a 43 year old female patient here today for an intermittent dry cough She states she overall feels healthy. She does see an punchboard inserter. She is utilizing zyrtec and flonase.She describes this cough as a tickle in her throat. Very similar to when her allergies were flaring. Marni Echeverria, AMBER [address], [place], [address], [employer] 01/29/2024 12:07:35 08/24/2024 text/html Breanna Camejo i s a 43 year old female patient here today for urinary cocnerns Notes that since Thursday she has been urinating more frequently with associated burning with urination.She states on Thursday she urinated every 20 minutes.She does have slight abdomen cramping but this is not uncommon for her Marni Echeverria, AMBER [address], [place], [address], [employer] 08/24/2024 12:45:12 OBGyn Episode No OBEpisode recorded.
--- OUTSIDE RECORDS SUMMARY | 2024-09-25 12:49 | XMS_ITS ---
Author Organization [employer] [facility] ([address]) Address [address] [place] [address] Care Team Providers Care Mine Supervisor Name Role Phone Anahi Mcgraw Primary Care Provider Rod Mortensen Unavailable [phone] [employer], Provider Unavailable Unavailab le Allergies Allergen (clinical drug ingredient) Drug/Non Drug Allergy documented on EMR Reaction Allergy Type Onset Date Status erythromycin Erythromycin vomiting Drug Allergy A ctive [facility] Conversion Encounter Medications Medication SIG (Take, Route, Frequency, Duration) Notes Start Date End Date Status Cetirizine HCl 10 MG 1 tab(s) orally BID; Duration: 30 days 11/03/2022 Active Mirena (52 MG) 52 MG 1 EA BY INTRAUTERINE ADMINISTRATION ONCE; Duration: 1 DOSE(S) *Please review and pick correct strength-formulati on from [facility] options. If intended option is not shown, discontinue and re-order from Quick Search* Active Topamax 50 MG 1 tab(s) orally 2 times a day; Duration: 30 day(s) Active Encounters Encounter Location Date Provider Diagnosis [facility] [place] [address] 09/05/2023 Provider Rich Other urticaria L50.8 Assessments Encounter Date Diagnosis (ICD Code) Assessment Notes Treatment Notes Treatment Clinical Notes Section Notes 09/05/2023 Other urticaria (ICD-10 - L50.8) Plan Of Treatment Medication Medication Name Sig Start Date Stop Date Notes Cetirizine HCl 10 MG 1 tab(s) orally BID ; Duration: 30 days 11/03/2022 Progress Notes * Breanna RIBEIRO RDOB: [birth year] (44 yo F)Acc No.[id number]:09/05/2023 Patient: Breanna BHARDWAJ Provider: Sukhdeep Thao :1980 A ge:43 Y S ex:Female Date:09/05/2023 Address:[address] [place] [address], [facility], [id number] Pcp:FADIA Norman Subjective: * Chief Complaints: * 1 . [facility] Conversion Encounter. * Medical History: * Medications: T aking Mirena (52 MG) 52 MG DEVICE 1 EA BY INTRAUTERINE ADMINISTRATION ONCE , Notes to Pharmacist: *Please review and pick correct strength-formulation from [facility] options. If intended option is not shown, discontinue and re-order from Quick Search*, Taking Topamax 50 MG Tablet 1 tab(s) orally 2 times a day * Allergies: E rythromycin: vomiting - Side Effects. Objective: * Vitals: Assessment: * Assessment: 1. O ther urticaria - L50.8 Plan: * Treatment: * Billing Information: * Visit Code: * Procedure Codes: * Electronic signature of Prov tamia De LunaZ-Migration on 09/25/2024 at 12:48 PM CDT Sign off status: Pending * Provider: Sukhdeep Thao Date: 09/05/2023 Generated for Darline dixon/Kathryn/Brent on: 09/25/2024 12:48 PM CDT
[2024-09-25 12:58] VITALS: BP 138/93; PULSE 84; RESP 18; TEMP 36.6; O2SAT 100
== END 2024-09-25 13:07 | disposition home or self-care (01) ==
PROVIDERS: Emergency Provider Nurse Practitioner Family
DX: H65.02 Acute serous otitis media, left ear (principal); Z87.891 Personal history of nicotine dependence
CPT/HCPCS: 99213; G0463

== ENCOUNTER 2024-09-28 13:10 | Outpatient (CLI) | payer BC, SELFPAY ==
--- NOTE | ~2024-09-28 | US_ITS ---
US venous doppler [facility] - 09/28/2024 14:06 CDT History: 44 years old Female with bilateral lower extremity pain and swelling. Real-time sonographic images of the bilateral lower extremity venous system were obtained. Color Dop pler sonography and spectral waveform analysis were performed. No prior studies for comparison. The bilateral sapheno-femoral junctions are patent. The bilateral common femoral, superficial femor al, popliteal and posterior tibial veins are compressible and without evidence of echogenic thrombus . Impression: No evidence of deep venous thrombosis Reviewed, dictated and finalized at location A. Impression: No evidence of deep venous thrombosis
--- OUTSIDE RECORDS SUMMARY | 2024-09-28 13:20 | XMS_ITS ---
Author Organization [employer] [facility] [facility] [place] ([address]) Address [address] [place] [address] Care Team Providers Care Inside Account Executive Name Role Phone Anahi Mcgraw Primary Care Provider Rod Mortensen Unavailable [phone] [employer], Provider Unavailable Unavailab le Allergies Allergen (clinical drug ingredient) Drug/Non Drug Allergy documented on EMR Reaction Allergy Type Onset Date Status erythromycin Erythromycin vomiting Drug Allergy A ctive [facility] Conversion Encounter Medications Medication SIG (Take, Route, Frequency, Duration) Notes Start Date End Date Status Cetirizine HCl 10 MG 1 tab(s) orally BID; Duration: 30 days 11/03/2022 Active Mirena (52 MG) 52 MG 1 EA BY INTRAUTERINE ADMINISTRATION ONCE; Duration: 1 DOSE(S) *Please review and pick correct strength-formulati on from [facility] options. If intended option is not shown, discontinue and re-order from Quick Search* Active Topamax 50 MG 1 tab(s) orally 2 times a day; Duration: 30 day(s) Active Encounters Encounter Location Date Provider Diagnosis [facility] [place] [address] 09/05/2023 Provider Rich Other urticaria L50.8 Assessments Encounter Date Diagnosis (ICD Code) Assessment Notes Treatment Notes Treatment Clinical Notes Section Notes 09/05/2023 Other urticaria (ICD-10 - L50.8) Plan Of Treatment Medication Medication Name Sig Start Date Stop Date Notes Cetirizine HCl 10 MG 1 tab(s) orally BID ; Duration: 30 days 11/03/2022 Progress Notes * Breanna RIBEIRO RDOB: [birth year] (44 yo F)Acc No.[id number]:09/05/2023 Patient: Breanna BHARDWAJ Provider: Sukhdeep Thao :1980 A ge:43 Y S ex:Female Date:09/05/2023 Address:[address] [place] [address], [facility], [id number] Pcp:FADIA Norman Subjective: * Chief Complaints: * [...] signature of Prov tamia De LunaZ-Migration on 09/28/2024 at 01:20 PM CDT Sign off status: Pending * Provider: Sukhdeep Thao Date: 09/05/2023 Generated for Darline dixon/Kathryn/Leilaitting on: 09/28/2024 01:20 PM CDT
--- OUTSIDE RECORDS SUMMARY | 2024-09-28 13:21 | XMS_ITS | Patient Health Record ---
Author Organization [employer] [place] ([address]) Address [address] [place] [address] Care Team Providers Care Editor Newspaper Name Role Phone Anahi Mcgraw Primary Care Provider Rod Mortensen Unavailable [phone] Allergies Allergen (clinical drug ingredient) Drug/Non Drug [...] Status Risk Notes Problem Chronic allergic conjunctivitis (17379157) Other chronic allergic conjunctivitis (H10.45) Active confirmed Problem Allergic rhinitis caused by pollen (disorder) (19364976) Allergic rhinitis due to pollen (J30.1) Active confirmed Problem Allergic rhinitis (15443251) Other allergic rhinitis (J30.89) Active confirmed Problem Allergic rhinitis caused by animal hair and dander (704562924325964) Allergic rhinitis due to animal (cat) (dog) hair and dander (J30.81) Active confirmed Problem Urticaria (801439518) Other urticaria (L50.8) Active confirmed Problem Elevated blood pressure reading without diagnosis of hypertension (714986317) Elevated blood-pressure reading, without diagnosis of hypertension (R03.0) Active confirmed Problem Intolerance to lactose (finding) (280578975) Lactose intolerance, unspecified (E73.9) Active confirmed Problem Allergy status t o other antibiotic agents (Z88.1) Active confirmed Problem Chronic cough (43711067) Chronic cough (R05.3) Active confirmed Plan Of Treatment No Information Insurance Providers Payer Name Payer Address Payer Phone Subscriber Number Group Number Insured Name Patient Relationship to Insured Coverage Start Date Coverage End Date [facility] [address] [place] [address] [phone] [id number] Breanna Vazquez Self - patient is the insured Medical (General) History Surgical History Surgery Date(Month/Year) Tonsillectomy 03/01/2010
== END 2024-09-28 13:11 | disposition home or self-care (01) ==
PROVIDERS: Visit Provider Nurse Practitioner Adult Health
DX: R22.42 Localized swelling, mass and lump, left lower limb (principal)
CPT/HCPCS: 93970

== ENCOUNTER 2025-01-26 08:23 | Outpatient (CLI) | payer BC, SELFPAY ==
--- NOTE | ~2025-01-26 | MM_ITS ---
EXAMINATION: MM screening geoffrey BI w aisha HISTORY: Screening TECHNIQUE: Craniocaudal and mediolateral oblique 3-D tomosynthesis images were obtained and synthetic 2-D images were generated. CAD analysis was submitted and interpreted. COMPARISON: Comparison to multiple prior studies sequentially, with oldest reviewed study dated , 11/02/2018 BREAST PARENCHYMAL COMPOSITION: There are scattered areas of fibroglandular density. FINDINGS: There is no evidence of suspicious mass, calcification, or architectural distortion to suggest malignancy in either breast. IMPRESSION: 1. No mammographic evidence of malignancy. 2. Recommend routine screening mammography in one year. BI-RADS Category 1: Negative Reviewed, dictated and finalized at location B. 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
== END 2025-01-26 08:24 | disposition home or self-care (01) ==
LOC: MICIMG 08:24
PROVIDERS: Visit Provider Obstetrics & Gynecology
DX: Z12.31 Encounter for screening mammogram for malignant neoplasm of breast (principal)
CPT/HCPCS: 77063; 77067